=== PATIENT | female | born 1955 | race Caucasian/White ===

== ENCOUNTER 2022-03-14 20:16 | Emergency (ER) | payer BC, OTHER ==
--- OUTSIDE RECORDS SUMMARY | 2022-03-14 20:21 | XMS REPORT | Continuity of Care Document ---
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 lesion, inflammatory change, calcification, or sign of ductal obstruction.Thyroid: Within normal limits. Vascular structures: Bilateral carotid artery atherosclerotic calcifications.Paranasal sinuses: Clear. The mastoids are clear.Cranial posterior fossa: Within normal limits.Superficial tissues: Within normal limits.Regional skeleton: Multilevel significant cervical spine degenerative changes. C4-C5 3.7 mm grade 2 anterolisthesis is present with severe bilateral facet arthrosis and severe foraminal stenosis. C5-C6 and C6-C7 severe right foraminal stenosis is present. C7-T1 1.5 mm anterolisthesis is presentLung apices: Within normal limits.IMPRESSION: 1. Midline oral tongue mucosal cleft may be due to prior wedge resection. No residual or recurrent neoplasm identified. No adenopathy. 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 Axial, sagittal, coronal images are interpreted. This exam was performed according to our departmental dose-optimization protocol, which includes automated exposure control, adjustment of the mA and/or kV according to patient size and/or use of iterative reconstruction technique. Contrast : 98 mL Omnipaque 300 IV contrast was given.DLP- 323 mGy-cmCOMPARISON: No prior.FINDINGS:Aerodigestiv e tract: No mucosal thickening, abnormal enhancement, or asymmetry. The submucosal fat planes are maintained. Midline oral tongue mucosal surface cleft may be due to prior wedge resection. No evidence of residual or recurrent malignancy is identified. The lingual tonsils appear unremarkable.Lymph nodes: No lymphadenopathy.Salivary glands: No mass lesion, inflammatory change, calcification, or sign of ductal obstruction.Thyroid: Within normal limits. Vascular structures: Bilateral carotid artery atherosclerotic calcifications.Paranasal sinuses: Clear. The mastoids are clear.Cranial posterior fossa: Within normal limits.Superficial tissues: Within normal limits.Regional skeleton: Multilevel significant cervical spine degenerative changes. C4-C5 3.7 mm grade 2 anterolisthesis is present with severe bilateral facet arthrosis and severe foraminal stenosis. C5-C6 and C6-C7 severe right foraminal stenosis is present. C7-T1 1.5 mm anterolisthesis is presentLung apices: Within normal limits.IMPRESSION: 1. Midline oral tongue mucosal cleft may be due to prior wedge resection. No residual or recurrent neoplasm identified. No adenopathy. 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 Coronal and sagittal reformatted images are performed. This exam was performed according to our departmental dose-optimization program which includes automated exposure control, adjustment of the mA and/or kV according to patient size and/or use of iterative reconstruction technique. IV Contrast: 98 ml Omnipaque DLP: 298 mGy-cmCOMPARISON: 05/10/2017.FINDINGS:Lower Neck: The thyroid is unremarkable.Heart and Great Vessels: The heart size is within normal limits without pericardial effusion. The thoracic aorta is normal in size without aneurysmal dilatation. There is multifocal calcified and noncalcified atherosclerotic plaque involving the thoracic aorta.Lymph Nodes: There is a centrally-necrotic left supraclavicular lymph node, measuring 1.2 x 1.3 cm (series 2, image 4). There is no axillary, mediastinal, or hilar lymphadenopathy.Lungs and Pleura: There is a 3 mm indeterminate pulmonary nodule within the right upper lobe, not definitely visualized on the prior examination (series 3, image 22 and series 401B, image 66). Small focal area of branching opacities are redemonstrated along the posterior aspect of the superior segment of the left lower lobe (series 3, images 31 through 33 and series 401B, image 97). There are no additional suspicious pulmonary nodules identified. Calcified granuloma is noted within the left lower lobe. The lungs are otherwise clear. There are no pleural effusions or pneumothorax. There is a small fat-containing left-sided Bochdalek diaphragmatic hernia.Upper Abdomen: Unremarkable.Osseous Structures: No suspicious osteolytic or osteoblastic lesions. There is mild dextrocurvature of the thoracic spine and there are multilevel degenerative changes of the spine.IMPRESSION:1. Centrally-necrotic left supraclavicular lymph node, measuring 1.3 cm in diameter, suspicious for metastatic disease given the patient's history.2. Indeterminate small, 3 mm, pulmonary nodule within the right upper lobe. * Recommend close to this nodule and subsequent follow-up examinations.3. 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 Coronal and sagittal reformatted images are performed. This exam was performed according to our departmental dose-optimization program which includes automated exposure control, adjustment of the mA and/or kV according to patient size and/or use of iterative reconstruction technique. IV Contrast: 98 ml Omnipaque DLP: 298 mGy-cmCOMPARISON: 05/10/2017.FINDINGS:Lower Neck: The thyroid is unremarkable.Heart and Great Vessels: The heart size is within normal limits without pericardial effusion. The thoracic aorta is normal in size without aneurysmal dilatation. There is multifocal calcified and noncalcified atherosclerotic plaque involving the thoracic aorta.Lymph Nodes: There is a centrally-necrotic left supraclavicular lymph node, measuring 1.2 x 1.3 cm (series 2, image 4). There is no axillary, mediastinal, or hilar lymphadenopathy.Lungs and Pleura: There is a 3 mm indeterminate pulmonary nodule within the right upper lobe, not definitely visualized on the prior examination (series 3, image 22 and series 401B, image 66). Small focal area of branching opacities are redemonstrated along the posterior aspect of the superior segment of the left lower lobe (series 3, images 31 through 33 and series 401B, image 97). There are no additional suspicious pulmonary nodules identified. Calcified granuloma is noted within the left lower lobe. The lungs are otherwise clear. There are no pleural effusions or pneumothorax. There is a small fat-containing left-sided Bochdalek diaphragmatic hernia.Upper Abdomen: Unremarkable.Osseous Structures: No suspicious osteolytic or osteoblastic lesions. There is mild dextrocurvature of the thoracic spine and there are multilevel degenerative changes of the spine.IMPRESSION:1. Centrally-necrotic left supraclavicular lymph node, measuring 1.3 cm in diameter, suspicious for metastatic disease given the patient's history.2. Indeterminate small, 3 mm, pulmonary nodule within the right upper lobe. * Recommend close to this nodule and subsequent follow-up examinations.3. 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 [facility] EyeIC [id number] 08:25:00 Test Item Value Reference Range Interpretation Comments eGFR (test code = eGFR) 96 [facility] HospitalLifeSh[facility] Security [id number] 08:25:00 Test Item Value Reference Range Interpretation Comments Alk Phos (test code = Alk Phos) 80 39-136 [facility]Life[facility] [id number] 08:25:00 Test Item Value Reference Range Interpretation Comments Bili Total (test code = Bili Total) 0.5 0.2-1.3 [facility] HospitalLifeShield Security [id number] 08:25:00 Test Item Value Reference Range Interpretation Comments AST (test code = AST) 23 See_Comment [Auto mated message] The system which ge nerated this result transmit heena reference range : <=37. The reference range was not used to interpr et this result as mor l/abnormal. [facility] [id number] 08:25:00 Test Item Value Reference Range Interpretation Comments CO2 (test code = CO2) 27 24-32 [facility]2018-04-04 08:25:00 Test Item Value Reference Range Interpretation Comments Calcium Lvl (test code = Calcium Lvl) 8.8 8.5-10.5 [facility]2018-04-04 08:25:00 Test Item Value Reference Range Interpretation Comments Total Protein (test code = Total 8.1 6.4-8.4 Protein) [facility]2018-04-04 08:25:00 Test Item Value Reference Range Interpretation Comments Albumin Lvl (test code = Albumin Lvl) 3.0 3.5-5.0 [place] 185608-04-04 08:25:00 Test Item Value Reference Range Interpretation Comments ALT (test code = ALT) 26 See_Comment [Auto mated message] The system which ge nerated this result transmit heena reference range : <=65. The reference range was not used to interpr et this result as mor l/abnormal. [facility]2018-04-04 08:25:00 Test Item Value Reference Range Interpretation Comments BUN (test code = BUN) 6 7-22 [facility]2018-04-04 08:25:00 Test Item Value Reference Range Interpretation Comments Creatinine Lvl (test code = Creatinine 0.65 0.50-1.40 Lvl) [facility]2018-04-04 08:25:00 Test Item Value Reference Range Interpretation Comments Sodium Lvl (test code = Sodium Lvl) 140 135-145 [facility]2018-04-04 08:25:00 Test Item Value Reference Range Interpretation Comments Potassium Lvl (test code = Potassium 3.7 3.5-5.1 Lvl) [facility]2018-04-04 08:25:00 Test Item Value Reference Range Interpretation Comments Chloride Lvl (test code = Chloride Lvl) 105 95-109 [place] 185608-04-04 08:25:00 Test Item Value Reference Range Interpretation Comments Glucose Lvl (test code = Glucose Lvl) 99 70-99 [facility]2018-04-04 08:25:00 Test Item Value Reference Range Interpretation Comments A/G Ratio (test code = A/G Ratio) 0.6 1 0.7-1.6 [facility]2018-04-04 08:25:00 Test Item Value Reference Range Interpretation Comments Globulin (test code = Globulin) 5.1 2.7-4.2 [facility] [id number] 08:25:00 Test Item Value Reference Range Interpretation Comments B/C Ratio (test code = B/C Ratio) 9 1 6-25 [facility] [id number] 08:25:00 Test Item Value Reference Range Interpretation Comments AGAP (test code = AGAP) 11.7 10.0-20.0 [facility]PcxkrruYJYAHAZSEA4455-84-36 08:25:00 Test Item Value Reference Range Interpretation Comments MCV (test code = MCV) 89.0 80.0-98.0 [facility] CenterUgkhswvKZSZVJWIVK3511-84-13 08:25:00 Test Item Value Reference Range Interpretation Comments Hct (test code = Hct) 42.4 36.0-48.0 [facility] CenterOlpnqbgWTTHOJTOOW7694-70-11 08:25:00 Test Item Value Reference Range Interpretation Comments WBC (test code = WBC) 8.8 3.7-10.4 [facility] CenterHtwlypeMVPWKYQSFW7643-03-24 08:25:00 Test Item Value Reference Range Interpretation Comments Hgb (test code = Hgb) 13.9 12.0-16.0 [facility] CenterGpfgacxOEKTZLBVSG7317-25-90 08:25:00 Test Item Value Reference Range Interpretation Comments MPV (test code = MPV) 9.0 7.4-10.4 [facility] CenterZycirsgQQLHBVYCLD8904-74-67 08:25:00 Test Item Value Reference Range Interpretation Comments RBC (test code = RBC) 4.76 4.20-5.40 [facility] CenterRtttypnQUOQRJURUU6752-14-43 08:25:00 Test Item Value Reference Range Interpretation Comments Platelet (test code = Platelet) 296 133-450 [facility] CenterIlosendUMMRECTLYG8308-59-30 08:25:00 Test Item Value Reference Range Interpretation Comments RDW (test code = RDW) 12.5 11.5-14.5 [facility] CenterFpqgxujGJGXGZJYKC6947-95-11 08:25:00 Test Item Value Reference Range Interpretation Comments MCHC (test code = MCHC) 32.8 32.0-36.0 [facility] CenterQysqshtNFTTEYSVMC5224-91-02 08:25:00 Test Item Value Reference Range Interpretation Comments MCH (test code = MCH) 29.2 pg 27.0-31.0 [facility] CenterSdyraorNIDFWEGZKS3292-79-37 08:25:00 Test Item Value Reference Range Interpretation Comments Eosinophils # (test code 0.2 See_Comment [A utomated message] The = Eosinophils #) system whic h generated this result tra nsmitted reference range : <=0.5. The reference r samara was not used to int erpret this result as normal/abnormal . [facility] CenterKwdwcvkWRMKVPCAVP8104-23-43 08:25:00 Test Item Value Reference Range Interpretation Comments Monocytes # (test code 0.8 See_Comment [Aut omated message] The = Monocytes #) system which generated this result tra nsmitted reference range : <=0.8. The reference r samara was not used to int erpret this result as normal/abnormal . [facility] CenterIgskuqzXEUAQKPEZK9249-06-55 08:25:00 Test Item Value Reference Range Interpretation Comments Lymphocytes # (test code = Lymphocytes 2.2 1.0-5.5 #) [facility] CenterJfvapayVSQMIMFDUT4712-04-16 08:25:00 Test Item Value Reference Range Interpretation Comments Segs-Bands # (test code = Segs-Bands #) 5.6 1.5-8.1 [facility] CenterDkhhpavZDANEDEYMX9133-43-43 08:25:00 Test Item Value Reference Range Interpretation Comments Eosinophils (test code = 2.3 See_Comment [A utomated message] The Eosinophils) system which ge nerated this result tra nsmitted reference range : <=4.0. The reference r samara was not used to int erpret this result as normal/abnormal . [facility] CenterMppbezwPNHJTXUVZL5681-67-35 08:25:00 Test Item Value Reference Range Interpretation Comments Basophils (test code = 0.5 See_Comment [Aut omated message] The Basophils) system which ge nerated this result tra nsmitted reference range : <=1.0. The reference r samara was not used to int erpret this result as normal/abnormal . [facility] CenterXhisisvNHPNXSAHLE3748-69-56 08:25:00 Test Item Value Reference Range Interpretation Comments Lymphocytes (test code = Lymphocytes) 24.7 20.0-40.0 [facility] CenterRozixgcIGDLAGOXYY0058-58-24 08:25:00 Test Item Value Reference Range Interpretation Comments Segs (test code = Segs) 63.9 45.0-75.0 [facility] HospitalRkgkchxLIVHRHUSCK8552-69-12 08:25:00 Test Item Value Reference Range Interpretation Comments Monocytes (test code = Monocytes) 8.6 2.0-12.0 [facility]2018-04-04 08:25:00 Test Item Value Reference Range Interpretation Comments eGFR (test code = eGFR) 96 [facility]2018-04-04 08:25:00 Test Item Value Reference Range Interpretation Comments Alk Phos (test code = Alk Phos) 80 39-136 [facility]2018-04-04 08:25:00 Test Item Value Reference Range Interpretation Comments Bili Total (test code = Bili Total) 0.5 0.2-1.3 [facility]2018-04-04 08:25:00 Test Item Value Reference Range Interpretation Comments AST (test code = AST) 23 See_Comment [Auto mated message] The system which ge nerated this result transmit heena reference range : <=37. The reference range was not used to interpr et this result as mor l/abnormal. [facility]2018-04-04 08:25:00 Test Item Value Reference Range Interpretation Comments CO2 (test code = CO2) 27 24-32 [facility]2018-04-04 08:25:00 Test Item Value Reference Range Interpretation Comments Calcium Lvl (test code = Calcium Lvl) 8.8 8.5-10.5 [facility]2018-04-04 08:25:00 Test Item Value Reference Range Interpretation Comments Total Protein (test code = Total 8.1 6.4-8.4 Protein) [facility]2018-04-04 08:25:00 Test Item Value Reference Range Interpretation Comments Albumin Lvl (test code = Albumin Lvl) 3.0 3.5-5.0 [facility]2018-04-04 08:25:00 Test Item Value Reference Range Interpretation Comments ALT (test code = ALT) 26 See_Comment [Auto mated message] The system which ge nerated this result transmit heena reference range : <=65. The reference range was not used to interpr et this result as mor l/abnormal. [facility]2018-04-04 08:25:00 Test Item Value Reference Range Interpretation Comments BUN (test code = BUN) 6 7-22 [facility]2018-04-04 08:25:00 Test Item Value Reference Range Interpretation Comments Creatinine Lvl (test code = Creatinine 0.65 0.50-1.40 Lvl) [facility]2018-04-04 08:25:00 Test Item Value Reference Range Interpretation Comments Sodium Lvl (test code = Sodium Lvl) 140 135-145 [facility]2018-04-04 08:25:00 Test Item Value Reference Range Interpretation Comments Potassium Lvl (test code = Potassium 3.7 3.5-5.1 Lvl) [facility]2018-04-04 08:25:00 Test Item Value Reference Range Interpretation Comments Chloride Lvl (test code = Chloride Lvl) 105 95-109 [facility]2018-04-04 08:25:00 Test Item Value Reference Range Interpretation Comments Glucose Lvl (test code = Glucose Lvl) 99 70-99 [facility]2018-04-04 08:25:00 Test Item Value Reference Range Interpretation Comments A/G Ratio (test code = A/G Ratio) 0.6 1 0.7-1.6 [facility]2018-04-04 08:25:00 Test Item Value Reference Range Interpretation Comments Globulin (test code = Globulin) 5.1 2.7-4.2 [facility]2018-04-04 08:25:00 Test Item Value Reference Range Interpretation Comments B/C Ratio (test code = B/C Ratio) 9 1 6-25 [place] 185608-04-04 08:25:00 Test Item Value Reference Range Interpretation Comments AGAP (test code = AGAP) 11.7 10.0-20.0 [facility] CenterGlxiybkYIUNKZTCHD5185-81-78 08:25:00 Test Item Value Reference Range Interpretation Comments MCV (test code = MCV) 89.0 80.0-98.0 [facility] CenterNhsotezEKQJVRRVVL4553-10-72 08:25:00 Test Item Value Reference Range Interpretation Comments Hct (test code = Hct) 42.4 36.0-48.0 [place] 895518-04-04 08:25:00 Test Item Value Reference Range Interpretation Comments WBC (test code = WBC) 8.8 3.7-10.4 [facility] CenterKgkrrktIIQYHSHYAI3266-97-43 08:25:00 Test Item Value Reference Range Interpretation Comments Hgb (test code = Hgb) 13.9 12.0-16.0 [facility] CenterQzxdqlaILVTEKSISI1292-09-46 08:25:00 Test Item Value Reference Range Interpretation Comments MPV (test code = MPV) 9.0 7.4-10.4 [facility] CenterPstfqcdPZAMIRHIWR9279-46-69 08:25:00 Test Item Value Reference Range Interpretation Comments RBC (test code = RBC) 4.76 4.20-5.40 [facility] CenterXsunyimEYPYADJFCD8073-11-84 08:25:00 Test Item Value Reference Range Interpretation Comments Platelet (test code = Platelet) 296 133-450 [facility] CenterJbsjatbTLFMRDNXNM4171-04-72 08:25:00 Test Item Value Reference Range Interpretation Comments RDW (test code = RDW) 12.5 11.5-14.5 [facility] CenterDhfumyeDDZQTAVJVA7497-13-85 08:25:00 Test Item Value Reference Range Interpretation Comments MCHC (test code = MCHC) 32.8 32.0-36.0 [facility] CenterDebbzmgPMCCAXWWIA1555-48-99 08:25:00 Test Item Value Reference Range Interpretation Comments MCH (test code = MCH) 29.2 pg 27.0-31.0 [facility] CenterQpelbzlAYCBZPNZSH4912-44-99 08:25:00 Test Item Value Reference Range Interpretation Comments Eosinophils # (test code 0.2 See_Comment [A utomated message] The = Eosinophils #) system whic h generated this result tra nsmitted reference range : <=0.5. The reference r samara was not used to int erpret this result as normal/abnormal . [facility] CenterPewxwzbXLMDZXNCHX4404-44-74 08:25:00 Test Item Value Reference Range Interpretation Comments Monocytes # (test code 0.8 See_Comment [Aut omated message] The = Monocytes #) system which generated this result tra nsmitted reference range : <=0.8. The reference r samara was not used to int erpret this result as normal/abnormal . [facility] CenterZissmvqFBKTKGCYUV4002-31-58 08:25:00 Test Item Value Reference Range Interpretation Comments Lymphocytes # (test code = Lymphocytes 2.2 1.0-5.5 #) [facility] CenterWduyezaRWOGURLEYI5358-17-44 08:25:00 Test Item Value Reference Range Interpretation Comments Segs-Bands # (test code = Segs-Bands #) 5.6 1.5-8.1 [facility] CenterPeqbpuhLQAEPUFFJN1640-30-44 08:25:00 Test Item Value Reference Range Interpretation Comments Eosinophils (test code = 2.3 See_Comment [A utomated message] The Eosinophils) system which ge nerated this result tra nsmitted reference range : <=4.0. The reference r samara was not used to int erpret this result as normal/abnormal . [id number] 08:25:00 Test Item Value Reference Range Interpretation Comments Basophils (test code = 0.5 See_Comment [Aut omated message] The Basophils) system which ge nerated this result tra nsmitted reference range : <=1.0. The reference r samara was not used to int erpret this result as normal/abnormal . [facility] CenterXhudhilMLHWUVRPFT7047-92-36 08:25:00 Test Item Value Reference Range Interpretation Comments Lymphocytes (test code = Lymphocytes) 24.7 20.0-40.0 [facility] CenterUygegznFSXDVPHSUB8405-57-44 08:25:00 Test Item Value Reference Range Interpretation Comments Segs (test code = Segs) 63.9 45.0-75.0 [facility] CenterWqzlrxnOONJRNGIDI8445-29-24 08:25:00 Test Item Value Reference Range Interpretation Comments Monocytes (test code = Monocytes) 8.6 2.0-12.0 [facility] [id number] 01:14:00 Test Item Value Reference Range Interpretation Comments Ammonia (test code = Ammonia) 32.0 [facility] [id number] 01:14:00 Test Item Value Reference Range Interpretation Comments Ammonia (test code = Ammonia) 32.0 [place] [id number] 19:40:00 Test Item Value Reference Range Interpretation Comments Acetaminoph Lvl (test code = (05/10/17 2:40 PM) 10-20 Acetaminoph Lvl) [place] [id number] 19:40:00 Test Item Value Reference Range Interpretation Comments Salicylate Lvl (test no gt See_Comment [Autom ated message] The code = Salicylate Lvl) syste m which generated this result tra nsmitted reference range : <=30.0. The reference r samara was not used to int erpret this result as normal/abnormal . [facility]NjyxvszDOYTOPVNZJ4660-75-52 19:40:00 Test Item Value Reference Range Interpretation Comments Etoh (%) (test code = Etoh (%)) <0.003 % [facility] RnwxursWFJEFFGHUI4102-48-79 19:40:00 Test Item Value Reference Range Interpretation Comments Ethanol Lvl (test code = Ethanol <3.0 mg/dL Lvl) [facility] VbmleeiGIEWEVIDIF8316-62-05 19:40:00 Test Item Value Reference Range Interpretation Comments Acetaminoph Lvl (test code = (05/10/17 2:40 PM) 10-20 Acetaminoph Lvl) [facility] LszltkyFXOBGXHPBX3724-32-45 19:40:00 Test Item Value Reference Range Interpretation Comments Salicylate Lvl (test no gt See_Comment [Autom ated message] The code = Salicylate Lvl) syste m which generated this result tra nsmitted reference range : <=30.0. The reference r samara was not used to int erpret this result as normal/abnormal . [facility] GfvjeezJKYAQXVNXZ5471-08-12 19:40:00 Test Item Value Reference Range Interpretation Comments Etoh (%) (test code = Etoh (%)) <0.003 % [facility] ZwqxwvgASUKSDAZPK5502-03-71 19:40:00 Test Item Value Reference Range Interpretation Comments Ethanol Lvl (test code = Ethanol <3.0 mg/dL Lvl) [facility] [employer] AND [id number] 19:36:00 Test Item Value Reference Range Interpretation Comments UA Urobilinogen (test code = UA <=1.0 mg/dL 0.1-1.0 Urobilinogen) [facility] [employer] AND [id number] 19:36:00 Test Item Value Reference Range Interpretation Comments UA WBC (test code = no gt See_Comment [Automa heena message] The UA WBC) system which ge nerated this result transmit heena reference range : <=5. The reference range was not used to interpr et this result as mor l/abnormal. [facility] [employer] AND [id number] 19:36:00 Test Item Value Reference Range Interpretation Comments UA RBC (test code = no gt See_Comment [Automa heena message] The UA RBC) system which ge nerated this result transmit heena reference range : <=2. The reference range was not used to interpr et this result as mor l/abnormal. [facility] AND [id number] 19:36:00 Test Item Value Reference Range Interpretation Comments UA Turbidity (test code = Clear (05/10/17 2:36 UA Turbidity) PM) [facility] AND [id number] 19:36:00 Test Item Value Reference Range Interpretation Comments UA Color (test code = Light Yellow UA Color) *NA*(05/10/17 2:36 PM) [facility] AND [id number] 19:36:00 Test Item Value Reference Range Interpretation Comments UA Sq Epi (test code = UA Sq Epi) None Seen [facility] AND [id number] 19:36:00 Test Item Value Reference Range Interpretation Comments UA Mucus (test code = UA Mucus) Few /LPF [facility] AND [id number] 19:36:00 Test Item Value Reference Range Interpretation Comments UA Bili (test code = Negative *NA*(05/10/17 UA Bili) 2:36 PM) [facility] AND [id number] 19:36:00 Test Item Value Reference Range Interpretation Comments UA Ketones (test code = UA Negative mg/dL Ketones) [facility] AND [id number] 19:36:00 Test Item Value Reference Range Interpretation Comments UA Blood (test code = Negative (05/10/17 2:36 UA Blood) PM) [facility] AND [id number] 19:36:00 Test Item Value Reference Range Interpretation Comments UA Spec Grav (test code = UA Spec 1.018 1 Grav) [facility] AND [id number] 19:36:00 Test Item Value Reference Range Interpretation Comments UA pH (test code = UA pH) 7.5 1 5.0-8.0 [facility] AND [id number] 19:36:00 Test Item Value Reference Range Interpretation Comments UA Leuk Est (test Negative (05/10/17 2:36 code = UA Leuk Est) PM) [facility] AND [id number] 19:36:00 Test Item Value Reference Range Interpretation Comments UA Nitrite (test code Negative (05/10/17 2:36 = UA Nitrite) PM) [facility] AND [id number] 19:36:00 Test Item Value Reference Range Interpretation Comments UA Protein (test code = UA Negative mg/dL Protein) [facility] AND [id number] 19:36:00 Test Item Value Reference Range Interpretation Comments UA Glucose (test code = UA Negative mg/dL Glucose) [facility] AND [id number] 19:36:00 Test Item Value Reference Range Interpretation Comments UA Urobilinogen (test code = UA <=1.0 mg/dL 0.1-1.0 Urobilinogen) [facility] AND [id number] 19:36:00 Test Item Value Reference Range Interpretation Comments UA WBC (test code = no gt See_Comment [Automa heena message] The UA WBC) system which ge nerated this result transmit heena reference range : <=5. The reference range was not used to interpr et this result as mor l/abnormal. [facility] AND [id number] 19:36:00 Test Item Value Reference Range Interpretation Comments UA RBC (test code = no gt See_Comment [Automa heena message] The UA RBC) system which ge nerated this result transmit heena reference range : <=2. The reference range was not used to interpr et this result as mor l/abnormal. [facility] AND [id number] 19:36:00 Test Item Value Reference Range Interpretation Comments UA Turbidity (test code = Clear (05/10/17 2:36 UA Turbidity) PM) [facility] AND [id number] 19:36:00 Test Item Value Reference Range Interpretation Comments UA Color (test code = Light Yellow UA Color) *NA*(05/10/17 2:36 PM) [facility] AND [id number] 19:36:00 Test Item Value Reference Range Interpretation Comments UA Sq Epi (test code = UA Sq Epi) None Seen [facility] AND [id number] 19:36:00 Test Item Value Reference Range Interpretation Comments UA Mucus (test code = UA Mucus) Few /LPF [facility] AND [id number] 19:36:00 Test Item Value Reference Range Interpretation Comments UA Bili (test code = Negative *NA*(05/10/17 UA Bili) 2:36 PM) [facility] AND [id number] 19:36:00 Test Item Value Reference Range Interpretation Comments UA Ketones (test code = UA Negative mg/dL Ketones) [facility] AND [id number] 19:36:00 Test Item Value Reference Range Interpretation Comments UA Blood (test code = Negative (05/10/17 2:36 UA Blood) PM) [facility] AND [id number] 19:36:00 Test Item Value Reference Range Interpretation Comments UA Spec Grav (test code = UA Spec 1.018 1 Grav) [facility] AND [id number] 19:36:00 Test Item Value Reference Range Interpretation Comments UA pH (test code = UA pH) 7.5 1 5.0-8.0 [facility] AND [id number] 19:36:00 Test Item Value Reference Range Interpretation Comments UA Leuk Est (test Negative (05/10/17 2:36 code = UA Leuk Est) PM) [facility] AND [id number] 19:36:00 Test Item Value Reference Range Interpretation Comments UA Nitrite (test code Negative (05/10/17 2:36 = UA Nitrite) PM) [facility] AND [id number] 19:36:00 Test Item Value Reference Range Interpretation Comments UA Protein (test code = UA Negative mg/dL Protein) [facility] AND [id number] 19:36:00 Test Item Value Reference Range Interpretation Comments UA Glucose (test code = UA Negative mg/dL Glucose) [facility] [id number] 19:35:00 Test Item Value Reference Range Interpretation Comments U Cocaine Scr (test Negative *NA*(05/10/17 code = U Cocaine Scr) 2:35 PM) [facility] [id number] 19:35:00 Test Item Value Reference Range Interpretation Comments U Zoe Scr (test code Negative *NA*(05/10/17 = U Zoe Scr) 2:35 PM) [facility] [id number] 19:35:00 Test Item Value Reference Range Interpretation Comments U Benzodia Scr (test Negative *NA*(05/10/17 code = U Benzodia Scr) 2:35 PM) [facility] [id number] 19:35:00 Test Item Value Reference Range Interpretation Comments U Opiate Scr (test Negative *NA*(05/10/17 code = U Opiate Scr) 2:35 PM) [facility] [id number] 19:35:00 Test Item Value Reference Range Interpretation Comments U Amph Scr (test code Positive *ABN*(05/10/17 = U Amph Scr) 2:35 PM) [facility] [id number] 19:35:00 Test Item Value Reference Range Interpretation Comments U Cannab Scr (test Negative *NA*(05/10/17 code = U Cannab Scr) 2:35 PM) [facility] [id number] 19:35:00 Test Item Value Reference Range Interpretation Comments U Phencyc Scr (test Negative *NA*(05/10/17 code = U Phencyc Scr) 2:35 PM) [facility] [id number] 19:35:00 Test Item Value Reference Range Interpretation Comments UDS Note (test code = See Note (05/10/17 2:35 UDS Note) PM) [facility] [id number] 19:35:00 Test Item Value Reference Range Interpretation Comments U Cocaine Scr (test Negative *NA*(05/10/17 code = U Cocaine Scr) 2:35 PM) [facility] [id number] 19:35:00 Test Item Value Reference Range Interpretation Comments U Zoe Scr (test code Negative *NA*(05/10/17 = U Zoe Scr) 2:35 PM) [facility] [id number] 19:35:00 Test Item Value Reference Range Interpretation Comments U Benzodia Scr (test Negative *NA*(05/10/17 code = U Benzodia Scr) 2:35 PM) [facility] [id number] 19:35:00 Test Item Value Reference Range Interpretation Comments U Opiate Scr (test Negative *NA*(05/10/17 code = U Opiate Scr) 2:35 PM) [facility] [id number] 19:35:00 Test Item Value Reference Range Interpretation Comments U Amph Scr (test code Positive *ABN*(05/10/17 = U Amph Scr) 2:35 PM) [facility] [id number] 19:35:00 Test Item Value Reference Range Interpretation Comments U Cannab Scr (test Negative *NA*(05/10/17 code = U Cannab Scr) 2:35 PM) [facility] [id number] 19:35:00 Test Item Value Reference Range Interpretation Comments U Phencyc Scr (test Negative *NA*(05/10/17 code = U Phencyc Scr) 2:35 PM) [facility] [id number] 19:35:00 Test Item Value Reference Range Interpretation Comments UDS Note (test code = See Note (05/10/17 2:35 UDS Note) PM) [facility] [id number] 17:17:00 Test Item Value Reference Range Interpretation Comments [facility] HIV 4th GEN (test Negative *NA*(05/10/17 code = CDC HIV 4th 12:17 PM) GEN) [facility] H[id number] 17:17:00 Test Item Value Reference Range Interpretation Comments [facility] HIV 4th GEN (test Negative *NA*(05/10/17 code = CDC HIV 4th 12:17 PM) GEN) [facility] [id number] 17:12:00 Test Item Value Reference Range Interpretation Comments Lactic Acid Lvl (test code = Lactic 1.3 0.5-2.2 Acid Lvl) [facility] [id number] 17:12:00 Test Item Value Reference Range Interpretation Comments Lactic Acid Lvl (test code = Lactic 1.2 0.5-2.2 Acid Lvl) [facility] [id number] 17:12:00 Test Item Value Reference Range Interpretation Comments Lactic Acid Lvl (test code = Lactic 1.3 0.5-2.2 Acid Lvl) [facility] [id number] 17:12:00 Test Item Value Reference Range Interpretation Comments Lactic Acid Lvl (test code = Lactic 1.2 0.5-2.2 Acid Lvl) [facility] [id number] 13:30:00 Test Item Value Reference Range Interpretation Comments eGFR (test code = eGFR) 79 [facility]2018-04-03 13:30:00 Test Item Value Reference Range Interpretation Comments Potassium Lvl (test code = Potassium 3.3 3.5-5.1 Lvl) [facility]2018-04-03 13:30:00 Test Item Value Reference Range Interpretation Comments Chloride Lvl (test code = Chloride Lvl) 105 95-109 [facility]2018-04-03 13:30:00 Test Item Value Reference Range Interpretation Comments CO2 (test code = CO2) 25 24-32 [facility]2018-04-03 13:30:00 Test Item Value Reference Range Interpretation Comments Calcium Lvl (test code = Calcium Lvl) 8.5 8.5-10.5 [facility]2018-04-03 13:30:00 Test Item Value Reference Range Interpretation Comments Sodium Lvl (test code = Sodium Lvl) 138 135-145 [facility]2018-04-03 13:30:00 Test Item Value Reference Range Interpretation Comments Creatinine Lvl (test code = Creatinine 0.81 0.50-1.40 Lvl) [facility]2018-04-03 13:30:00 Test Item Value Reference Range Interpretation Comments Glucose Lvl (test code = Glucose Lvl) 123 70-99 [facility]2018-04-03 13:30:00 Test Item Value Reference Range Interpretation Comments BUN (test code = BUN) 9 7-22 [facility]2018-04-03 13:30:00 Test Item Value Reference Range Interpretation Comments AGAP (test code = AGAP) 11.3 10.0-20.0 [facility]2018-04-03 13:30:00 Test Item Value Reference Range Interpretation Comments Lactic Acid Lvl (test code = Lactic 2.3 0.5-2.2 Acid Lvl) [facility] [id number] 13:30:00 Test Item Value Reference Range Interpretation Comments K-time Rapid (test code = K-time 0.8 min 0.6-2.3 Rapid) [facility] CenterZbnanawUPKMUGNQTB7580-12-05 13:30:00 Test Item Value Reference Range Interpretation Comments Angle Rapid (test code = Angle 80 degrees 64-80 Rapid) [facility] C[id number] 13:30:00 Test Item Value Reference Range Interpretation Comments Split Point Rapid (test code = Split 0.6 min Point Rapid) [facility] CenterBujadqbYRKKUFYSMX4594-72-76 13:30:00 Test Item Value Reference Range Interpretation Comments R-time Rapid (test code = R-time 0.7 min 0.4-0.7 Rapid) [facility] CenterHyjagpjVMMZOFQRNW5648-14-23 13:30:00 Test Item Value Reference Range Interpretation Comments ACT (TEG) Rapid (test code = ACT (TEG) 113 s 86-118 Rapid) [facility] C[id number] 13:30:00 Test Item Value Reference Range Interpretation Comments Estimated % Lysis Rapid 3.4 See_Comment [Au tomated message] The (test code = Estimated syste m which generated % Lysis Rapid) this result t ransmitted reference range : <=7.5. The reference r samara was not used to int erpret this result as normal/abnormal . [facility] CenterCangyblWZJXVGRVXJ5057-73-57 13:30:00 Test Item Value Reference Range Interpretation Comments G-value Rapid (test code = G-value 12.7 5.0-11.6 Rapid) [facility] C[id number] 13:30:00 Test Item Value Reference Range Interpretation Comments Max Amplitude Rapid (test code = Max 72 mm 52-71 Amplitude Rapid) [facility] CenterLjkpjseNQMVKGXJBA4524-49-12 13:30:00 Test Item Value Reference Range Interpretation Comments Monocytes # (test code 0.7 See_Comment [Aut omated message] The = Monocytes #) system which generated this result tra nsmitted reference range : <=0.8. The reference r samara was not used to int erpret this result as normal/abnormal . [facility] CenterUbthjcoXPAUODHEQY4893-53-99 13:30:00 Test Item Value Reference Range Interpretation Comments Basophils (test code = 0.3 See_Comment [Aut omated message] The Basophils) system which ge nerated this result tra nsmitted reference range : <=1.0. The reference r samara was not used to int erpret this result as normal/abnormal . [facility] CenterPjpmchnOZMFEMNNLA5142-13-38 13:30:00 Test Item Value Reference Range Interpretation Comments Segs-Bands # (test code = Segs-Bands #) 7.7 1.5-8.1 [facility] CenterFisqkqwURBPZYSKBN0529-75-33 13:30:00 Test Item Value Reference Range Interpretation Comments Lymphocytes # (test code = Lymphocytes 1.4 1.0-5.5 #) [facility] CenterEttflmcWBPAQPZPFW3215-48-44 13:30:00 Test Item Value Reference Range Interpretation Comments Monocytes (test code = Monocytes) 6.9 2.0-12.0 [facility] CenterUrsitnjSHSAMAYKYR2356-17-77 13:30:00 Test Item Value Reference Range Interpretation Comments Lymphocytes (test code = Lymphocytes) 14.0 20.0-40.0 [facility] CenterSdlizdzSVHUIXIXQA2854-12-84 13:30:00 Test Item Value Reference Range Interpretation Comments Eosinophils (test code = 1.7 See_Comment [A utomated message] The Eosinophils) system which ge nerated this result tra nsmitted reference range : <=4.0. The reference r samara was not used to int erpret this result as normal/abnormal . [facility] CenterNgvqpctGCKAWPMOPE9218-94-56 13:30:00 Test Item Value Reference Range Interpretation Comments Segs (test code = Segs) 77.1 45.0-75.0 [facility] CenterVhkmkilLVABYVBXTY9796-79-19 13:30:00 Test Item Value Reference Range Interpretation Comments Eosinophils # (test code 0.2 See_Comment [A utomated message] The = Eosinophils #) system whic h generated this result tra nsmitted reference range : <=0.5. The reference r samara was not used to int erpret this result as normal/abnormal . [facility] CenterQeqwvufAAHPAYZQKZ4326-61-89 13:30:00 Test Item Value Reference Range Interpretation Comments MCH (test code = MCH) 29.2 pg 27.0-31.0 [facility] CenterCvirdorAJQMXQSSEJ6104-23-11 13:30:00 Test Item Value Reference Range Interpretation Comments MCHC (test code = MCHC) 33.1 32.0-36.0 [facility] CenterGbxghuiTDFKKLQKZY9318-69-93 13:30:00 Test Item Value Reference Range Interpretation Comments MCV (test code = MCV) 88.3 80.0-98.0 [facility] CenterDfgxoehWVHEVRIZCC1220-06-58 13:30:00 Test Item Value Reference Range Interpretation Comments MPV (test code = MPV) 9.0 7.4-10.4 [facility] CenterJwyvrauCJZXIRGBJP4662-82-28 13:30:00 Test Item Value Reference Range Interpretation Comments Platelet (test code = Platelet) 268 133-450 [facility] CenterTkubozqABBSGGWQVJ5669-89-76 13:30:00 Test Item Value Reference Range Interpretation Comments RDW (test code = RDW) 13.0 11.5-14.5 [facility] CenterLpumhpyMMRKITNNLM7938-35-95 13:30:00 Test Item Value Reference Range Interpretation Comments Hct (test code = Hct) 40.3 36.0-48.0 [facility] CenterHmvocreXYSRQGMAHO0922-01-34 13:30:00 Test Item Value Reference Range Interpretation Comments RBC (test code = RBC) 4.57 4.20-5.40 [facility] CenterZkwuthkMKWKJEKPTS6610-05-77 13:30:00 Test Item Value Reference Range Interpretation Comments Hgb (test code = Hgb) 13.3 12.0-16.0 [facility] CenterOpjrjtmCXNKAVMHTE0759-95-81 13:30:00 Test Item Value Reference Range Interpretation Comments WBC (test code = WBC) 10.0 3.7-10.4 [facility]2018-04-03 13:30:00 Test Item Value Reference Range Interpretation Comments eGFR (test code = eGFR) 79 [facility]2018-04-03 13:30:00 Test Item Value Reference Range Interpretation Comments Potassium Lvl (test code = Potassium 3.3 3.5-5.1 Lvl) [facility]2018-04-03 13:30:00 Test Item Value Reference Range Interpretation Comments Chloride Lvl (test code = Chloride Lvl) 105 95-109 [facility]2018-04-03 13:30:00 Test Item Value Reference Range Interpretation Comments CO2 (test code = CO2) 25 24-32 [facility]2018-04-03 13:30:00 Test Item Value Reference Range Interpretation Comments Calcium Lvl (test code = Calcium Lvl) 8.5 8.5-10.5 [facility]2018-04-03 13:30:00 Test Item Value Reference Range Interpretation Comments Sodium Lvl (test code = Sodium Lvl) 138 135-145 [facility]2018-04-03 13:30:00 Test Item Value Reference Range Interpretation Comments Creatinine Lvl (test code = Creatinine 0.81 0.50-1.40 Lvl) [facility]2018-04-03 13:30:00 Test Item Value Reference Range Interpretation Comments Glucose Lvl (test code = Glucose Lvl) 123 70-99 [facility]2018-04-03 13:30:00 Test Item Value Reference Range Interpretation Comments BUN (test code = BUN) 9 7-22 [place] 185608-04-03 13:30:00 Test Item Value Reference Range Interpretation Comments AGAP (test code = AGAP) 11.3 10.0-20.0 [facility]2018-04-03 13:30:00 Test Item Value Reference Range Interpretation Comments Lactic Acid Lvl (test code = Lactic 2.3 0.5-2.2 Acid Lvl) [place] 895518-04-03 13:30:00 Test Item Value Reference Range Interpretation Comments K-time Rapid (test code = K-time 0.8 min 0.6-2.3 Rapid) [facility] CenterOatprqzYIFNRQTXDO3278-51-99 13:30:00 Test Item Value Reference Range Interpretation Comments Angle Rapid (test code = Angle 80 degrees 64-80 Rapid) [place] [address]-04-03 13:30:00 Test Item Value Reference Range Interpretation Comments Split Point Rapid (test code = Split 0.6 min Point Rapid) [facility] CenterFxcrbysJFRJKZSXJK8435-37-68 13:30:00 Test Item Value Reference Range Interpretation Comments R-time Rapid (test code = R-time 0.7 min 0.4-0.7 Rapid) [place] [address]-04-03 13:30:00 Test Item Value Reference Range Interpretation Comments ACT (TEG) Rapid (test code = ACT (TEG) 113 s 86-118 Rapid) [place] 895518-04-03 13:30:00 Test Item Value Reference Range Interpretation Comments Estimated % Lysis Rapid 3.4 See_Comment [Au tomated message] The (test code = Estimated syste m which generated % Lysis Rapid) this result t ransmitted reference range : <=7.5. The reference r samara was not used to int erpret this result as normal/abnormal . [facility] CenterFjhldbcUXOPFECAWB7746-36-17 13:30:00 Test Item Value Reference Range Interpretation Comments G-value Rapid (test code = G-value 12.7 5.0-11.6 Rapid) [facility]GsflvsrULIRBXZKLJ8848-97-19 13:30:00 Test Item Value Reference Range Interpretation Comments Max Amplitude Rapid (test code = Max 72 mm 52-71 Amplitude Rapid) [facility] CenterTqtarwtAKHCGROVJT1187-72-17 13:30:00 Test Item Value Reference Range Interpretation Comments Monocytes # (test code 0.7 See_Comment [Aut omated message] The = Monocytes #) system which generated this result tra nsmitted reference range : <=0.8. The reference r samara was not used to int erpret this result as normal/abnormal . [facility] CenterEdbhyhuIHMMLXULHV2743-78-99 13:30:00 Test Item Value Reference Range Interpretation Comments Basophils (test code = 0.3 See_Comment [Aut omated message] The Basophils) system which ge nerated this result tra nsmitted reference range : <=1.0. The reference r samara was not used to int erpret this result as normal/abnormal . [facility] CenterIazhowuSLMMINVJHL0184-10-58 13:30:00 Test Item Value Reference Range Interpretation Comments Segs-Bands # (test code = Segs-Bands #) 7.7 1.5-8.1 [facility] CenterIyotqpfVRSTHBTZVO7553-08-88 13:30:00 Test Item Value Reference Range Interpretation Comments Lymphocytes # (test code = Lymphocytes 1.4 1.0-5.5 #) [facility] CenterKyctchzNZJEXUIJFN9594-61-86 13:30:00 Test Item Value Reference Range Interpretation Comments Monocytes (test code = Monocytes) 6.9 2.0-12.0 [facility] CenterBjbrxvlOFNLJZIJRM3088-35-28 13:30:00 Test Item Value Reference Range Interpretation Comments Lymphocytes (test code = Lymphocytes) 14.0 20.0-40.0 [place] [address]-04-03 13:30:00 Test Item Value Reference Range Interpretation Comments Eosinophils (test code = 1.7 See_Comment [A utomated message] The Eosinophils) system which ge nerated this result tra nsmitted reference range : <=4.0. The reference r samara was not used to int erpret this result as normal/abnormal . [facility] CenterGzbpauzVWWRSQNNWU2981-82-83 13:30:00 Test Item Value Reference Range Interpretation Comments Segs (test code = Segs) 77.1 45.0-75.0 [facility] CenterRbnutlhJHJREWNIYS0975-24-85 13:30:00 Test Item Value Reference Range Interpretation Comments Eosinophils # (test code 0.2 See_Comment [A utomated message] The = Eosinophils #) system whic h generated this result tra nsmitted reference range : <=0.5. The reference r samara was not used to int erpret this result as normal/abnormal . [facility] CenterLoskgzrQFHDZFRESX3589-90-56 13:30:00 Test Item Value Reference Range Interpretation Comments MCH (test code = MCH) 29.2 pg 27.0-31.0 [facility] CenterRjnrcepRQUAKJMOGO1894-48-29 13:30:00 Test Item Value Reference Range Interpretation Comments MCHC (test code = MCHC) 33.1 32.0-36.0 [facility] CenterQoqgjwyMFYBVUYTCL4093-90-72 13:30:00 Test Item Value Reference Range Interpretation Comments MCV (test code = MCV) 88.3 80.0-98.0 [facility] CenterBsrkjjnSBDPSWQCNJ0735-65-03 13:30:00 Test Item Value Reference Range Interpretation Comments MPV (test code = MPV) 9.0 7.4-10.4 [facility] CenterPucxijsLIVAQKDQDR5191-07-31 13:30:00 Test Item Value Reference Range Interpretation Comments Platelet (test code = Platelet) 268 133-450 [facility] CenterIqapmkwUCAVLRNPME4676-06-64 13:30:00 Test Item Value Reference Range Interpretation Comments RDW (test code = RDW) 13.0 11.5-14.5 [facility] CenterIzsuzurMLXVZMSXTC4744-75-42 13:30:00 Test Item Value Reference Range Interpretation Comments Hct (test code = Hct) 40.3 36.0-48.0 [facility] CenterRdtpwiqGDMQSLEBEH1931-40-26 13:30:00 Test Item Value Reference Range Interpretation Comments RBC (test code = RBC) 4.57 4.20-5.40 [facility] CenterFlrpkkzBPZLRHECTL5303-08-22 13:30:00 Test Item Value Reference Range Interpretation Comments Hgb (test code = Hgb) 13.3 12.0-16.0 [facility] CenterSzuklstTBBURDXBHT0715-44-55 13:30:00 Test Item Value Reference Range Interpretation Comments WBC (test code = WBC) 10.0 3.7-10.4 [facility]
--- NOTE | 2022-03-14 22:42 | ER ---
Nurse's Notes [facility] Name: Iveth Lara Age: 66 yrs Sex: Female : 1955 Arrival Date: 03/14/2022 Time: 20:20 Bed IW1 Private MD: Diagnosis: Presentation: 03/14 20:48 Chief complaint: Patient states: I want to get a referral to a local oncologist. I am kr3 taking 8 200mg at a time every few hours to keep my swelling down on tongue. I also have a place on my tongue that has been diagnosed as cancer. Coronavirus screen: Vaccine status: Patient reports being unvaccinated. Ebola Screen: Patient denies travel to an Ebola-affected area in the 21 days before illness onset. Initial Sepsis Screen: Does the patient meet any 2 criteria? No. Patient's initial sepsis screen is negative. Does the patient have a suspected source of infection? No. Patient's initial sepsis screen is negative. Risk Assessment: Do you want to hurt yourself or someone else? Patient reports no desire to harm self or others. Onset of symptoms was February 11, 2022. 20:48 Method Of Arrival: Ambulatory kr3 20:48 Acuity: RIAN 3 kr3 Triage Assessment: 20:58 General: Appears in no apparent distress. uncomfortable, slender, unkempt, Behavior is kr3 calm, flat. Pain:. Historical: - Allergies: 20:56 No Known Allergies; kr3 - PMHx: 20:56 tongue cancer; kr3 - Immunization history:: Adult Immunizations not up to date. - Social history:: Smoking status: Patient reports the use of cigarette tobacco products, smokes one pack cigarettes per day. Vital Signs: 20:48 BP 145 / 78; Pulse 89; Resp 18; Temp 99.7(TE); Pulse Ox 96% on R/A; Weight 44 kg; kr3 Height 5 ft. 4 in. (162.56 cm); Pain 9/10; 20:48 Body Mass Index 16.65 (44.00 kg, 162.56 cm) kr3 ED Course: 20:20 Patient arrived in ED. am2 20:39 Erick Garza PA is PHCP. cp 20:39 Erick Pratt MD is Attending Physician. cp 20:56 Triage completed. kr3 20:59 Arm band placed on left wrist. kr3 Administered Medications: No medications were administered Outcome: 22:41 Patient left the ED. bb Signatures: Jodie Valentino RN RN bb Erick Garza PA PA cp Moreno, Amanda [facility] Anusha Houston RN RN kr3 Corrections: (The following items were deleted from the chart) 20:58 20:56 PMHx: Diabetes mellitus; kr3 kr3
[2022-03-14 23:02] VITALS: BP 145/78; O2SAT 96
== END 2022-03-14 22:41 | disposition left against medical advice (07) ==
LOC: ER 20:16
DX: Z02.9 Encounter for administrative examinations, unspecified (principal)
CPT/HCPCS: 99281

== ENCOUNTER 2022-03-19 06:32 | Day surgery (SDC) | payer OTHER, BC ==
[2022-03-18 16:16] LABS: Potassium 3.4 mmol/L (3.5-5.1)
[2022-03-19] MEDS ORDERED: CEFAZOLIN SODIUM 1 GM/VIAL ONE (06:41)
[2022-03-19] MEDS ORDERED: Ringers Lactate 1,000 ML IV ONE (06:41)
[2022-03-19 07:22] VITALS: BP 131/57; TEMP 99.4; O2SAT 95
[2022-03-19] MEDS ORDERED: LIDOCAINE 1% MPF 5 ML VIAL ONE (07:46)
[2022-03-19] MEDS ORDERED: EPHEDRINE SULF 50 MG/ML VIAL ONE (07:46)
[2022-03-19] MEDS ORDERED: Phenylephrine HCl 10 MG/ML 1 ML VIAL ONE (07:47)
[2022-03-19] MEDS ORDERED: NS 0.9% VIAL 0 ML ONE (07:47)
[2022-03-19] MEDS ORDERED: propofoL 200 MG/20 ML VIAL IV ONE (07:47)
[2022-03-19] MEDS ORDERED: ETOMIDATE 20 MG/10 ML VIAL IV ONE (07:51)
[2022-03-19] MEDS ORDERED: FENTANYL CITR 100 MCG/2 ML ONE (08:24)
--- NOTE | 2022-03-23 17:33 | EKG ---
Test Date: 2022-03-18 Test Time: 15:05:43 Teacher Music: GHISLAINE MEASUREMENT RESULTS: Intervals: Rate: 80 NV: 134 QRSD: 80 QT: 338 QTc: 389 Fulda: P: 60 NV: 134 QRS: -29 T: 50 INTERPRETIVE STATEMENTS: Normal sinus rhythm Septal infarct, age undetermined Abnormal ECG No previous ECG available for comparison Electronically Signed On 03-23-22 17:19:44 BARKER PEELER by Jose Pruitt
== END 2022-03-19 08:40 | disposition left against medical advice (07) ==
LOC: OR 06:32
PROVIDERS: ATTEND Surgery
PROC: 0DH68UZ Insertion of Feeding Device into Stomach, Via Natural or Artificial Opening Endoscopic (ICD-10-PCS; principal; 2022-03-19 08:00)
DX: C02.9 Malignant neoplasm of tongue, unspecified (principal); E46 Unspecified protein-calorie malnutrition; K29.70 Gastritis, unspecified, without bleeding; Z53.09 Procedure and treatment not carried out because of other contraindication
CPT/HCPCS: 43246; 93005; 80048; 36415; J2704; J2001; J3010; J7120; J0690; A4216; J2370

== ENCOUNTER 2022-03-24 15:11 | Inpatient (IN) | payer OTHER, BC ==
--- OUTSIDE RECORDS SUMMARY | 2022-03-24 15:16 | XMS REPORT | Continuity of Care Document ---
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 Value Reference Range Interpretation Comments Total Protein (test code = Total 8.1 6.4-8.4 Protein) [facility]2018-04-04 08:25:00 Test Item Value Reference Range Interpretation Comments Albumin Lvl (test code = Albumin Lvl) 3.0 3.5-5.0 [facility]2018-04-04 08:25:00 Test Item Value Reference Range Interpretation Comments ALT (test code = ALT) 26 See_Comment [Auto mated message] The system which ge nerated this result transmit heena reference range : <=65. The reference range was not used to interpr et this result as mor l/abnormal. [facility]2018-04-04 08:25:00 Test Item Value Reference Range Interpretation Comments BUN (test code = BUN) 6 7-22 [facility]2018-04-04 08:25:00 Test Item Value Reference Range Interpretation Comments Creatinine Lvl (test code = Creatinine 0.65 0.50-1.40 Lvl) [facility]2018-04-04 08:25:00 Test Item Value Reference Range Interpretation Comments Sodium Lvl (test code = Sodium Lvl) 140 135-145 [facility]2018-04-04 08:25:00 Test Item Value Reference Range Interpretation Comments Potassium Lvl (test code = Potassium 3.7 3.5-5.1 Lvl) [facility]2018-04-04 08:25:00 Test Item Value Reference Range Interpretation Comments Chloride Lvl (test code = Chloride Lvl) 105 95-109 [facility]2018-04-04 08:25:00 Test Item Value Reference Range Interpretation Comments Glucose Lvl (test code = Glucose Lvl) 99 70-99 [facility]2018-04-04 08:25:00 Test Item Value Reference Range Interpretation Comments A/G Ratio (test code = A/G Ratio) 0.6 1 0.7-1.6 [facility]2018-04-04 08:25:00 Test Item Value Reference Range Interpretation Comments Globulin (test code = Globulin) 5.1 2.7-4.2 [facility]2018-04-04 08:25:00 Test Item Value Reference Range Interpretation Comments B/C Ratio (test code = B/C Ratio) 9 1 6-25 [place]288-04-04 08:25:00 Test Item Value Reference Range Interpretation Comments AGAP (test code = AGAP) 11.7 10.0-20.0 [facility] PasoPuozzbsWOGHYFJAVC8619-32-35 08:25:00 Test Item Value Reference Range Interpretation Comments MCV (test code = MCV) 89.0 80.0-98.0 [facility] PasoQbdjcirWLOZKYXAYQ1806-55-98 08:25:00 Test Item Value Reference Range Interpretation Comments Hct (test code = Hct) 42.4 36.0-48.0 [facility] PasoQrppzidDZGBNFPIAM2646-60-78 08:25:00 Test Item Value Reference Range Interpretation Comments WBC (test code = WBC) 8.8 3.7-10.4 [facility] PasoRwqsohpJHDAMWSEAU0175-02-51 08:25:00 Test Item Value Reference Range Interpretation Comments Hgb (test code = Hgb) 13.9 12.0-16.0 [facility] PasoYmwxekfXGDXROHEHS5668-54-67 08:25:00 Test Item Value Reference Range Interpretation Comments MPV (test code = MPV) 9.0 7.4-10.4 [facility] PasoDugywtiTTMCCALLBS2230-37-74 08:25:00 Test Item Value Reference Range Interpretation Comments RBC (test code = RBC) 4.76 4.20-5.40 [facility] PasoZdfpqocFCMAEXWNFZ7682-91-72 08:25:00 Test Item Value Reference Range Interpretation Comments Platelet (test code = Platelet) 296 133-450 [facility] PasoYnxchqwXHIOMTIZNE2955-32-76 08:25:00 Test Item Value Reference Range Interpretation Comments RDW (test code = RDW) 12.5 11.5-14.5 [facility] PasoGfwewdhKISBNQUUOR7754-06-11 08:25:00 Test Item Value Reference Range Interpretation Comments MCHC (test code = MCHC) 32.8 32.0-36.0 [facility] PasoAgwivkkMFQXBADDUT0824-51-35 08:25:00 Test Item Value Reference Range Interpretation Comments MCH (test code = MCH) 29.2 pg 27.0-31.0 [facility] PasoLtmseqyRIVKKDNMSF6388-16-52 08:25:00 Test Item Value Reference Range Interpretation Comments Eosinophils # (test code 0.2 See_Comment [A utomated message] The = Eosinophils #) system whic h generated this result tra nsmitted reference range : <=0.5. The reference r samara was not used to int erpret this result as normal/abnormal . [facility] PasoLgrxglnVCGECJNNGR5002-01-16 08:25:00 Test Item Value Reference Range Interpretation Comments Monocytes # (test code 0.8 See_Comment [Aut omated message] The = Monocytes #) system which generated this result tra nsmitted reference range : <=0.8. The reference r samara was not used to int erpret this result as normal/abnormal . [facility] PasoFnvkzctHFKTZWVSDM6170-09-69 08:25:00 Test Item Value Reference Range Interpretation Comments Lymphocytes # (test code = Lymphocytes 2.2 1.0-5.5 #) [facility] PasoMzhbyarJAJCHSTRYA0055-01-27 08:25:00 Test Item Value Reference Range Interpretation Comments Segs-Bands # (test code = Segs-Bands #) 5.6 1.5-8.1 [facility] PasoIvsazlhRENXJMDOXU6780-96-75 08:25:00 Test Item Value Reference Range Interpretation Comments Eosinophils (test code = 2.3 See_Comment [A utomated message] The Eosinophils) system which ge nerated this result tra nsmitted reference range : <=4.0. The reference r samara was not used to int erpret this result as normal/abnormal . [facility] PasoZbexkjgNPAJJVXTES0449-12-64 08:25:00 Test Item Value Reference Range Interpretation Comments Basophils (test code = 0.5 See_Comment [Aut omated message] The Basophils) system which ge nerated this result tra nsmitted reference range : <=1.0. The reference r samara was not used to int erpret this result as normal/abnormal . [facility] PasoDireiazCKYJQICEZT2828-33-32 08:25:00 Test Item Value Reference Range Interpretation Comments Lymphocytes (test code = Lymphocytes) 24.7 20.0-40.0 [facility] PasoIvhxchyXETIKNIADP6728-79-01 08:25:00 Test Item Value Reference Range Interpretation Comments Segs (test code = Segs) 63.9 45.0-75.0 [facility] PasoFajghnnJLNMDLOFZX4248-46-14 08:25:00 Test Item Value Reference Range Interpretation Comments Monocytes (test code = Monocytes) 8.6 2.0-12.0 [facility] [id number] 01:14:00 Test Item Value Reference Range Interpretation Comments Ammonia (test code = Ammonia) 32.0 [facility]annCOL[facility] SYSTEMKFAZS6323-18-39 01:14:00 Test Item Value Reference Range Interpretation Comments Ammonia (test code = Ammonia) 32.0 [facility] HospitalEgeooehRTYWILBKHH0654-62-17 19:40:00 Test Item Value Reference Range Interpretation Comments Acetaminoph Lvl (test code = (05/10/17 2:40 PM) 10-20 Acetaminoph Lvl) [facility] HospitalJkkzhzyAYBSGOTFTP4748-90-59 19:40:00 Test Item Value Reference Range Interpretation Comments Salicylate Lvl (test no gt See_Comment [Autom ated message] The code = Salicylate Lvl) syste m which generated this result tra nsmitted reference range : <=30.0. The reference r samara was not used to int erpret this result as normal/abnormal . [facility] LakeLtnntatXNDRJMYZIY4673-92-89 19:40:00 Test Item Value Reference Range Interpretation Comments Etoh (%) (test code = Etoh (%)) <0.003 % [facility] LakeMbyzqepHIFIGZLGSH9293-99-46 19:40:00 Test Item Value Reference Range Interpretation Comments Ethanol Lvl (test code = Ethanol <3.0 mg/dL Lvl) [facility]DfkiimoXDDEMJWXAZ6925-92-21 19:40:00 Test Item Value Reference Range Interpretation Comments Acetaminoph Lvl (test code = (05/10/17 2:40 PM) 10-20 Acetaminoph Lvl) [facility] LakeSkcdbkdPIBGVOAGXG6526-08-04 19:40:00 Test Item Value Reference Range Interpretation Comments Salicylate Lvl (test no gt See_Comment [Autom ated message] The code = Salicylate Lvl) syste m which generated this result tra nsmitted reference range : <=30.0. The reference r samara was not used to int erpret this result as normal/abnormal . [facility] HospitalZpohrxwAFUTOJJZRS1197-36-80 19:40:00 Test Item Value Reference Range Interpretation Comments Etoh (%) (test code = Etoh (%)) <0.003 % [facility] LakeQldmmgiCMAULYJFUI7805-33-24 19:40:00 Test Item Value Reference Range Interpretation Comments Ethanol Lvl (test code = Ethanol <3.0 mg/dL Lvl) [facility]2018-04-03 19:36:00 Test Item Value Reference Range Interpretation Comments UA Urobilinogen (test code = UA <=1.0 mg/dL 0.1-1.0 Urobilinogen) [facility] AND [id number] 19:36:00 Test Item Value Reference Range Interpretation Comments UA WBC (test code = no gt See_Comment [Automa heena message] The UA WBC) system which ge nerated this result transmit heena reference range : <=5. The reference range was not used to interpr et this result as mor l/abnormal. [facility] AND [id number] 19:36:00 Test Item Value Reference Range Interpretation Comments UA RBC (test code = no gt See_Comment [Automa heena message] The UA RBC) system which ge nerated this result transmit heena reference range : <=2. The reference range was not used to interpr et this result as mor l/abnormal. [facility] AND [id number] 19:36:00 Test Item Value Reference Range Interpretation Comments UA Turbidity (test code = Clear (05/10/17 2:36 UA Turbidity) PM) [facility] AND [id number] 19:36:00 Test Item Value Reference Range Interpretation Comments UA Color (test code = Light Yellow UA Color) *NA*(05/10/17 2:36 PM) [facility] AND [id number] 19:36:00 Test Item Value Reference Range Interpretation Comments UA Sq Epi (test code = UA Sq Epi) None Seen [facility] AND [id number] 19:36:00 Test Item Value Reference Range Interpretation Comments UA Mucus (test code = UA Mucus) Few /LPF [facility] AND [id number] 19:36:00 Test Item Value Reference Range Interpretation Comments UA Bili (test code = Negative *NA*(05/10/17 UA Bili) 2:36 PM) [facility] AND [id number] 19:36:00 Test Item Value Reference Range Interpretation Comments UA Ketones (test code = UA Negative mg/dL Ketones) [facility] AND [id number] 19:36:00 Test Item Value Reference Range Interpretation Comments UA Blood (test code = Negative (05/10/17 2:36 UA Blood) PM) [facility] AND [id number] 19:36:00 Test Item Value Reference Range Interpretation Comments UA Spec Grav (test code = UA Spec 1.018 1 Grav) [facility] AND [id number] 19:36:00 Test Item Value Reference Range Interpretation Comments UA pH (test code = UA pH) 7.5 1 5.0-8.0 [facility] AND [id number] 19:36:00 Test Item Value Reference Range Interpretation Comments UA Leuk Est (test Negative (05/10/17 2:36 code = UA Leuk Est) PM) [facility] AND [id number] 19:36:00 Test Item Value Reference Range Interpretation Comments UA Nitrite (test code Negative (05/10/17 2:36 = UA Nitrite) PM) [facility] AND [id number] 19:36:00 Test Item Value Reference Range Interpretation Comments UA Protein (test code = UA Negative mg/dL Protein) [facility] AND [id number] 19:36:00 Test Item Value Reference Range Interpretation Comments UA Glucose (test code = UA Negative mg/dL Glucose) [facility] AND [id number] 19:36:00 Test Item Value Reference Range Interpretation Comments UA Urobilinogen (test code = UA <=1.0 mg/dL 0.1-1.0 Urobilinogen) [facility] AND [id number] 19:36:00 Test Item Value Reference Range Interpretation Comments UA WBC (test code = no gt See_Comment [Automa heena message] The UA WBC) system which ge nerated this result transmit heena reference range : <=5. The reference range was not used to interpr et this result as mor l/abnormal. [facility] AND [id number] 19:36:00 Test Item Value Reference Range Interpretation Comments UA RBC (test code = no gt See_Comment [Automa heena message] The UA RBC) system which ge nerated this result transmit heena reference range : <=2. The reference range was not used to interpr et this result as mor l/abnormal. [facility] AND [id number] 19:36:00 Test Item Value Reference Range Interpretation Comments UA Turbidity (test code = Clear (05/10/17 2:36 UA Turbidity) PM) [facility] AND [id number] 19:36:00 Test Item Value Reference Range Interpretation Comments UA Color (test code = Light Yellow UA Color) *NA*(05/10/17 2:36 PM) [facility] AND [id number] 19:36:00 Test Item Value Reference Range Interpretation Comments UA Sq Epi (test code = UA Sq Epi) None Seen [facility] AND [id number] 19:36:00 Test Item Value Reference Range Interpretation Comments UA Mucus (test code = UA Mucus) Few /LPF [facility] AND [id number] 19:36:00 Test Item Value Reference Range Interpretation Comments UA Bili (test code = Negative *NA*(05/10/17 UA Bili) 2:36 PM) [facility] AND [id number] 19:36:00 Test Item Value Reference Range Interpretation Comments UA Ketones (test code = UA Negative mg/dL Ketones) [facility] AND [id number] 19:36:00 Test Item Value Reference Range Interpretation Comments UA Blood (test code = Negative (05/10/17 2:36 UA Blood) PM) [facility] AND [id number] 19:36:00 Test Item Value Reference Range Interpretation Comments UA Spec Grav (test code = UA Spec 1.018 1 Grav) [facility] AND [id number] 19:36:00 Test Item Value Reference Range Interpretation Comments UA pH (test code = UA pH) 7.5 1 5.0-8.0 [facility] AND [id number] 19:36:00 Test Item Value Reference Range Interpretation Comments UA Leuk Est (test Negative (05/10/17 2:36 code = UA Leuk Est) PM) [facility] AND [id number] 19:36:00 Test Item Value Reference Range Interpretation Comments UA Nitrite (test code Negative (05/10/17 2:36 = UA Nitrite) PM) [facility] AND [id number] 19:36:00 Test Item Value Reference Range Interpretation Comments UA Protein (test code = UA Negative mg/dL Protein) [facility] AND [id number] 19:36:00 Test Item Value Reference Range Interpretation Comments UA Glucose (test code = UA Negative mg/dL Glucose) [facility]ann[facility] [id number] 19:35:00 Test Item Value Reference Range Interpretation Comments U Cocaine Scr (test Negative *NA*(05/10/17 code = U Cocaine Scr) 2:35 PM) [facility] [id number] 19:35:00 Test Item Value Reference Range Interpretation Comments U Zoe Scr (test code Negative *NA*(05/10/17 = U Zoe Scr) 2:35 PM) [facility] [id number] 19:35:00 Test Item Value Reference Range Interpretation Comments U Benzodia Scr (test Negative *NA*(05/10/17 code = U Benzodia Scr) 2:35 PM) [facility] [id number] 19:35:00 Test Item Value Reference Range Interpretation Comments U Opiate Scr (test Negative *NA*(05/10/17 code = U Opiate Scr) 2:35 PM) [facility] [id number] 19:35:00 Test Item Value Reference Range Interpretation Comments U Amph Scr (test code Positive *ABN*(05/10/17 = U Amph Scr) 2:35 PM) [facility] [id number] 19:35:00 Test Item Value Reference Range Interpretation Comments U Cannab Scr (test Negative *NA*(05/10/17 code = U Cannab Scr) 2:35 PM) [facility] [id number] 19:35:00 Test Item Value Reference Range Interpretation Comments U Phencyc Scr (test Negative *NA*(05/10/17 code = U Phencyc Scr) 2:35 PM) [facility] [id number] 19:35:00 Test Item Value Reference Range Interpretation Comments UDS Note (test code = See Note (05/10/17 2:35 UDS Note) PM) [facility] [id number] 19:35:00 Test Item Value Reference Range Interpretation Comments U Cocaine Scr (test Negative *NA*(05/10/17 code = U Cocaine Scr) 2:35 PM) [facility] [id number] 19:35:00 Test Item Value Reference Range Interpretation Comments U Zoe Scr (test code Negative *NA*(05/10/17 = U Zoe Scr) 2:35 PM) [facility] [id number] 19:35:00 Test Item Value Reference Range Interpretation Comments U Benzodia Scr (test Negative *NA*(05/10/17 code = U Benzodia Scr) 2:35 PM) [facility] [id number] 19:35:00 Test Item Value Reference Range Interpretation Comments U Opiate Scr (test Negative *NA*(05/10/17 code = U Opiate Scr) 2:35 PM) [facility] [id number] 19:35:00 Test Item Value Reference Range Interpretation Comments U Amph Scr (test code Positive *ABN*(05/10/17 = U Amph Scr) 2:35 PM) [facility] [id number] 19:35:00 Test Item Value Reference Range Interpretation Comments U Cannab Scr (test Negative *NA*(05/10/17 code = U Cannab Scr) 2:35 PM) [facility] [id number] 19:35:00 Test Item Value Reference Range Interpretation Comments U Phencyc Scr (test Negative *NA*(05/10/17 code = U Phencyc Scr) 2:35 PM) [facility] [id number] 19:35:00 Test Item Value Reference Range Interpretation Comments UDS Note (test code = See Note (05/10/17 2:35 UDS Note) PM) [facility] [id number] 17:17:00 Test Item Value Reference Range Interpretation Comments [facility] HIV 4th GEN (test Negative *NA*(05/10/17 code = CDC HIV 4th 12:17 PM) GEN) [facility] [id number] 17:17:00 Test Item Value Reference Range Interpretation Comments CDC HIV 4th GEN (test Negative *NA*(05/10/17 code = CDC HIV 4th 12:17 PM) GEN) [facility]annCHE[facility] [id number] 17:12:00 Test Item Value Reference Range Interpretation Comments Lactic Acid Lvl (test code = Lactic 1.3 0.5-2.2 Acid Lvl) [facility]ann[facility] [id number] 17:12:00 Test Item Value Reference Range Interpretation Comments Lactic Acid Lvl (test code = Lactic 1.2 0.5-2.2 Acid Lvl) [facility]2018-04-03 17:12:00 Test Item Value Reference Range Interpretation Comments Lactic Acid Lvl (test code = Lactic 1.3 0.5-2.2 Acid Lvl) [facility]2018-04-03 17:12:00 Test Item Value Reference Range Interpretation Comments Lactic Acid Lvl (test code = Lactic 1.2 0.5-2.2 Acid Lvl) [facility]2018-04-03 13:30:00 Test Item Value Reference Range Interpretation Comments eGFR (test code = eGFR) 79 [facility]2018-04-03 13:30:00 Test Item Value Reference Range Interpretation Comments Potassium Lvl (test code = Potassium 3.3 3.5-5.1 Lvl) [facility]2018-04-03 13:30:00 Test Item Value Reference Range Interpretation Comments Chloride Lvl (test code = Chloride Lvl) 105 95-109 [facility]2018-04-03 13:30:00 Test Item Value Reference Range Interpretation Comments CO2 (test code = CO2) 25 24-32 [facility]2018-04-03 13:30:00 Test Item Value Reference Range Interpretation Comments Calcium Lvl (test code = Calcium Lvl) 8.5 8.5-10.5 [facility]2018-04-03 13:30:00 Test Item Value Reference Range Interpretation Comments Sodium Lvl (test code = Sodium Lvl) 138 135-145 [facility]2018-04-03 13:30:00 Test Item Value Reference Range Interpretation Comments Creatinine Lvl (test code = Creatinine 0.81 0.50-1.40 Lvl) [facility]2018-04-03 13:30:00 Test Item Value Reference Range Interpretation Comments Glucose Lvl (test code = Glucose Lvl) 123 70-99 [facility]2018-04-03 13:30:00 Test Item Value Reference Range Interpretation Comments BUN (test code = BUN) 9 7-22 [facility]2018-04-03 13:30:00 Test Item Value Reference Range Interpretation Comments AGAP (test code = AGAP) 11.3 10.0-20.0 [facility]2018-04-03 13:30:00 Test Item Value Reference Range Interpretation Comments Lactic Acid Lvl (test code = Lactic 2.3 0.5-2.2 Acid Lvl) [facility] [id number] 13:30:00 Test Item Value Reference Range Interpretation Comments K-time Rapid (test code = K-time 0.8 min 0.6-2.3 Rapid) [facility] [id number] 13:30:00 Test Item Value Reference Range Interpretation Comments Angle Rapid (test code = Angle 80 degrees 64-80 Rapid) [facility] [id number] 13:30:00 Test Item Value Reference Range Interpretation Comments Split Point Rapid (test code = Split 0.6 min Point Rapid) [facility]KjlvrtcNFTPGKGJEN7190-36-07 13:30:00 Test Item Value Reference Range Interpretation Comments R-time Rapid (test code = R-time 0.7 min 0.4-0.7 Rapid) [facility]K[id number] 13:30:00 Test Item Value Reference Range Interpretation Comments ACT (TEG) Rapid (test code = ACT (TEG) 113 s 86-118 Rapid) [facility] PasoZcqluitOQBANPMXWX3565-46-17 13:30:00 Test Item Value Reference Range Interpretation Comments Estimated % Lysis Rapid 3.4 See_Comment [Au tomated message] The (test code = Estimated syste m which generated % Lysis Rapid) this result t ransmitted reference range : <=7.5. The reference r samara was not used to int erpret this result as normal/abnormal . [facility] PasoMgvkcuiGSMKERRTYI2515-26-60 13:30:00 Test Item Value Reference Range Interpretation Comments G-value Rapid (test code = G-value 12.7 5.0-11.6 Rapid) [facility] PasoLmiknwjNKDFSHNPJA8276-59-77 13:30:00 Test Item Value Reference Range Interpretation Comments Max Amplitude Rapid (test code = Max 72 mm 52-71 Amplitude Rapid) [facility] PasoVvfsexqESFTQJHFOY2849-04-02 13:30:00 Test Item Value Reference Range Interpretation Comments Monocytes # (test code 0.7 See_Comment [Aut omated message] The = Monocytes #) system which generated this result tra nsmitted reference range : <=0.8. The reference r samara was not used to int erpret this result as normal/abnormal . [facility] PasoAqwrgixZPPNXRLFBP3024-76-50 13:30:00 Test Item Value Reference Range Interpretation Comments Basophils (test code = 0.3 See_Comment [Aut omated message] The Basophils) system which ge nerated this result tra nsmitted reference range : <=1.0. The reference r samara was not used to int erpret this result as normal/abnormal . [facility] PasoTrnjvkjZZDDURZDAQ5094-89-11 13:30:00 Test Item Value Reference Range Interpretation Comments Segs-Bands # (test code = Segs-Bands #) 7.7 1.5-8.1 [facility] PasoYnceirqYWBQROTLUX6102-79-15 13:30:00 Test Item Value Reference Range Interpretation Comments Lymphocytes # (test code = Lymphocytes 1.4 1.0-5.5 #) [facility] PasoDrwpnilGTUSDIQCYB8821-51-94 13:30:00 Test Item Value Reference Range Interpretation Comments Monocytes (test code = Monocytes) 6.9 2.0-12.0 [facility] PasoSwzrktyOXURLLMHNK0471-23-83 13:30:00 Test Item Value Reference Range Interpretation Comments Lymphocytes (test code = Lymphocytes) 14.0 20.0-40.0 [facility] PasoOgcwdsyOANFLKYFRQ0512-76-75 13:30:00 Test Item Value Reference Range Interpretation Comments Eosinophils (test code = 1.7 See_Comment [A utomated message] The Eosinophils) system which ge nerated this result tra nsmitted reference range : <=4.0. The reference r samara was not used to int erpret this result as normal/abnormal . [facility] PasoBlqsjbsNUMTDJEDGP8325-42-06 13:30:00 Test Item Value Reference Range Interpretation Comments Segs (test code = Segs) 77.1 45.0-75.0 [facility] PasoDrxljlePADLFJRJBG6809-88-45 13:30:00 Test Item Value Reference Range Interpretation Comments Eosinophils # (test code 0.2 See_Comment [A utomated message] The = Eosinophils #) system whic h generated this result tra nsmitted reference range : <=0.5. The reference r samara was not used to int erpret this result as normal/abnormal . [facility] PasoGrzvykuMOHESHEZNI1587-30-04 13:30:00 Test Item Value Reference Range Interpretation Comments MCH (test code = MCH) 29.2 pg 27.0-31.0 [facility] PasoUqjdzadANMMYOSOQH0907-48-60 13:30:00 Test Item Value Reference Range Interpretation Comments MCHC (test code = MCHC) 33.1 32.0-36.0 [facility] PasoMfrnycyHZFFRBCKRS2154-17-69 13:30:00 Test Item Value Reference Range Interpretation Comments MCV (test code = MCV) 88.3 80.0-98.0 [facility] PasoRsbvbuvPXLELMFVMU2583-46-58 13:30:00 Test Item Value Reference Range Interpretation Comments MPV (test code = MPV) 9.0 7.4-10.4 [facility] PasoTnzsueqIDQOHKNQEH1772-35-01 13:30:00 Test Item Value Reference Range Interpretation Comments Platelet (test code = Platelet) 268 133-450 [facility] PasoOzkotogAYZDGQSLDC0972-87-50 13:30:00 Test Item Value Reference Range Interpretation Comments RDW (test code = RDW) 13.0 11.5-14.5 [facility] PasoWlbcwwlRYMFSOUMSV8180-63-12 13:30:00 Test Item Value Reference Range Interpretation Comments Hct (test code = Hct) 40.3 36.0-48.0 [facility] PasoKicrnzwHMFRDBJHAP6900-05-71 13:30:00 Test Item Value Reference Range Interpretation Comments RBC (test code = RBC) 4.57 4.20-5.40 [facility] PasoRyokymsLWXLIZZGKG8467-68-29 13:30:00 Test Item Value Reference Range Interpretation Comments Hgb (test code = Hgb) 13.3 12.0-16.0 [facility] PasoCojzzljNMIMFDOJTC9747-54-64 13:30:00 Test Item Value Reference Range Interpretation Comments WBC (test code = WBC) 10.0 3.7-10.4 [facility]2018-04-03 13:30:00 Test Item Value Reference Range Interpretation Comments eGFR (test code = eGFR) 79 [facility]2018-04-03 13:30:00 Test Item Value Reference Range Interpretation Comments Potassium Lvl (test code = Potassium 3.3 3.5-5.1 Lvl) [facility]2018-04-03 13:30:00 Test Item Value Reference Range Interpretation Comments Chloride Lvl (test code = Chloride Lvl) 105 95-109 [facility]2018-04-03 13:30:00 Test Item Value Reference Range Interpretation Comments CO2 (test code = CO2) 25 24-32 [facility]2018-04-03 13:30:00 Test Item Value Reference Range Interpretation Comments Calcium Lvl (test code = Calcium Lvl) 8.5 8.5-10.5 [facility]2018-04-03 13:30:00 Test Item Value Reference Range Interpretation Comments Sodium Lvl (test code = Sodium Lvl) 138 135-145 [facility]2018-04-03 13:30:00 Test Item Value Reference Range Interpretation Comments Creatinine Lvl (test code = Creatinine 0.81 0.50-1.40 Lvl) [facility]2018-04-03 13:30:00 Test Item Value Reference Range Interpretation Comments Glucose Lvl (test code = Glucose Lvl) 123 70-99 [facility]2018-04-03 13:30:00 Test Item Value Reference Range Interpretation Comments BUN (test code = BUN) 9 7-22 [id number] 13:30:00 Test Item Value Reference Range Interpretation Comments AGAP (test code = AGAP) 11.3 10.0-20.0 [facility]2018-04-03 13:30:00 Test Item Value Reference Range Interpretation Comments Lactic Acid Lvl (test code = Lactic 2.3 0.5-2.2 Acid Lvl) [facility] Pa[id number] 13:30:00 Test Item Value Reference Range Interpretation Comments K-time Rapid (test code = K-time 0.8 min 0.6-2.3 Rapid) [facility] Pa[id number] 13:30:00 Test Item Value Reference Range Interpretation Comments Angle Rapid (test code = Angle 80 degrees 64-80 Rapid) [facility] PasoBowvedxPYUCIDUXZV4187-11-71 13:30:00 Test Item Value Reference Range Interpretation Comments Split Point Rapid (test code = Split 0.6 min Point Rapid) [facility] PasoCrsyshyJSRHOQDEFA2499-34-26 13:30:00 Test Item Value Reference Range Interpretation Comments R-time Rapid (test code = R-time 0.7 min 0.4-0.7 Rapid) [facility] PasoMtggosuMCVIZOIZAC2141-92-42 13:30:00 Test Item Value Reference Range Interpretation Comments ACT (TEG) Rapid (test code = ACT (TEG) 113 s 86-118 Rapid) [facility] PasoUtebuovFFDGCPLZYA9154-04-45 13:30:00 Test Item Value Reference Range Interpretation Comments Estimated % Lysis Rapid 3.4 See_Comment [Au tomated message] The (test code = Estimated syste m which generated % Lysis Rapid) this result t ransmitted reference range : <=7.5. The reference r samara was not used to int erpret this result as normal/abnormal . [facility] Pa[id number] 13:30:00 Test Item Value Reference Range Interpretation Comments G-value Rapid (test code = G-value 12.7 5.0-11.6 Rapid) [facility] PasoEaokbsmUZNIIAVYDA4009-95-19 13:30:00 Test Item Value Reference Range Interpretation Comments Max Amplitude Rapid (test code = Max 72 mm 52-71 Amplitude Rapid) [facility] PasoVbvbjlxQEPMTUCQET1015-08-57 13:30:00 Test Item Value Reference Range Interpretation Comments Monocytes # (test code 0.7 See_Comment [Aut omated message] The = Monocytes #) system which generated this result tra nsmitted reference range : <=0.8. The reference r samara was not used to int erpret this result as normal/abnormal . [facility] PasoEaafolrUALQJUACYE5831-07-13 13:30:00 Test Item Value Reference Range Interpretation Comments Basophils (test code = 0.3 See_Comment [Aut omated message] The Basophils) system which ge nerated this result tra nsmitted reference range : <=1.0. The reference r samara was not used to int erpret this result as normal/abnormal . [facility] PasoDrqcwgfDGOKZNXHEB1186-71-50 13:30:00 Test Item Value Reference Range Interpretation Comments Segs-Bands # (test code = Segs-Bands #) 7.7 1.5-8.1 [facility] PasoJqhckbgOVMEDYHSVM0248-50-22 13:30:00 Test Item Value Reference Range Interpretation Comments Lymphocytes # (test code = Lymphocytes 1.4 1.0-5.5 #) [facility] PasoFbhufctDKZLWVZGEY4163-38-38 13:30:00 Test Item Value Reference Range Interpretation Comments Monocytes (test code = Monocytes) 6.9 2.0-12.0 [facility] PasoVvmmlvbEOBYEOITIP1751-43-42 13:30:00 Test Item Value Reference Range Interpretation Comments Lymphocytes (test code = Lymphocytes) 14.0 20.0-40.0 [facility] PasoQhuabhzKNQCQFNKDU1501-47-14 13:30:00 Test Item Value Reference Range Interpretation Comments Eosinophils (test code = 1.7 See_Comment [A utomated message] The Eosinophils) system which ge nerated this result tra nsmitted reference range : <=4.0. The reference r samara was not used to int erpret this result as normal/abnormal . [facility] PasoThfxnqfHUAXNVAGSP7387-03-22 13:30:00 Test Item Value Reference Range Interpretation Comments Segs (test code = Segs) 77.1 45.0-75.0 [facility] PasoOgooslsIYATBMIVDU2137-67-82 13:30:00 Test Item Value Reference Range Interpretation Comments Eosinophils # (test code 0.2 See_Comment [A utomated message] The = Eosinophils #) system whic h generated this result tra nsmitted reference range : <=0.5. The reference r samara was not used to int erpret this result as normal/abnormal . [facility] PasoTgxqfmwKREOMZTIXH3542-44-49 13:30:00 Test Item Value Reference Range Interpretation Comments MCH (test code = MCH) 29.2 pg 27.0-31.0 [facility] PasoAcqgbpuTJUKHRRUZS4898-32-69 13:30:00 Test Item Value Reference Range Interpretation Comments MCHC (test code = MCHC) 33.1 32.0-36.0 [facility] PasoSozbhctPQZWDQZUPZ8683-95-64 13:30:00 Test Item Value Reference Range Interpretation Comments MCV (test code = MCV) 88.3 80.0-98.0 [facility] PasoWiukcplCAIGMNBADD4809-08-29 13:30:00 Test Item Value Reference Range Interpretation Comments MPV (test code = MPV) 9.0 7.4-10.4 [facility] PasoClvppdaSLYDCUTEOH5308-58-14 13:30:00 Test Item Value Reference Range Interpretation Comments Platelet (test code = Platelet) 268 133-450 [facility] PasoZlitehlRULNXNNUNJ4537-65-54 13:30:00 Test Item Value Reference Range Interpretation Comments RDW (test code = RDW) 13.0 11.5-14.5 [facility] PasoJfslyzqVOYYLDZOPF6419-02-06 13:30:00 Test Item Value Reference Range Interpretation Comments Hct (test code = Hct) 40.3 36.0-48.0 [facility] PasoHmybykhFTFNWUOFUP8769-56-78 13:30:00 Test Item Value Reference Range Interpretation Comments RBC (test code = RBC) 4.57 4.20-5.40 [facility] PasoFmsritvVREQOGWZZW8587-91-79 13:30:00 Test Item Value Reference Range Interpretation Comments Hgb (test code = Hgb) 13.3 12.0-16.0 [facility] PasoNkqojruMWFLDSSOAO3269-53-13 13:30:00 Test Item Value Reference Range Interpretation Comments WBC (test code = WBC) 10.0 3.7-10.4 [facility]
[2022-03-24] MEDS ORDERED: KETOROLAC 30 MG/ML INJ ONE (15:48)
[2022-03-24] MEDS ORDERED: ONDANSETRON 4 MG/2 ML VIAL ONE (15:48)
[2022-03-24] MEDS ORDERED: NA CHLORIDE 0.9% 500 ML ONE (15:49)
--- NOTE | 2022-03-24 16:07 | RAD REPORT ---
EXAM DESCRIPTION: RAD - Chest Single View - 03/24/2022 4:01 pm CLINICAL HISTORY: ABDOMINAL DISTENTION COMPARISON: No comparisons FINDINGS: Lines: None. Lungs: Ill-defined opacities are present within the lungs bilaterally. Pleural: No significant pleural effusions or pneumothorax. Cardiac: The heart size is within normal limits. Mediastinum: Within normal limits. Bones: No acute fractures. Other: None IMPRESSION: Ill-defined bilateral airspace disease could reflect multifocal pneumonia.
[2022-03-24 16:10] LABS: Absolute Lymphocytes (CBC) 1.1 K/uL (0.7-4.9); Hematocrit 21.5 % (36.0-45.0); Lymphocytes % 4.3 % (15.3-44.8); MCV 115.9 fL (80-100); MPV 8.2 fL (7.6-11.3); RBC Red Blood Cell Count 1.85 M/uL (3.86-4.86)
[2022-03-24 16:23] LABS: Potassium 3.2 mmol/L (3.5-5.1)
[2022-03-24] MEDS ORDERED: PIPERACIL/TAZO 3.375 GM VIAL IV ONE (17:05)
[2022-03-24] MEDS ORDERED: VANCOMYCIN 1 GM/VIAL ONE (17:05)
[2022-03-24] MEDS ORDERED: NA CHLORIDE 0.9% 250 ML ONE (17:06)
[2022-03-24] MEDS ORDERED: NA CHLORIDE 0.9% 100 ML ONE (17:06)
[2022-03-24 17:39] LABS: Protime INR 1.15
[2022-03-24 17:39] LABS: Platelet Estimate ADEQ; Platelets, Giant PRESENT; Toxic Granulation 1+
[2022-03-24 17:40] LABS: Blood Morphology Comment NOTED (NOT SEEN); Macrocytosis 3+
[2022-03-24 17:47] LABS: Albumin 2.4 g/dL (3.4-5.0); Bilirubin Direct 0.2 mg/dL (0-0.2); Bilirubin Total 0.3 mg/dL (0.2-1.0); Protein, Total 6.2 g/dL (6.4-8.2)
--- NOTE | 2022-03-24 18:15 | ER ---
Nurse's Notes [facility] Name: Iveth Lara Age: 66 yrs Sex: Female : 1955 Arrival Date: 03/24/2022 Time: 15:13 Bed 3 Private MD: Diagnosis: Anemia, unspecified;Adult failure to thrive;Other pneumonia, unspecified organism Presentation: 03/24 15:19 Chief complaint: Patient states: she had 30 teeth pulled today and is supposed to get a ap3 feeding tube now, her provider sent her here. patient states she has tongue cancer as for the reason for the teeth being pulled. Coronavirus screen: At this time, the client does not indicate any symptoms associated with coronavirus-19. Ebola Screen: No symptoms or risks identified at this time. Initial Sepsis Screen: Does the patient meet any 2 criteria? HR > 90 bpm. Does the patient have a suspected source of infection? No. Patient's initial sepsis screen is negative. Risk Assessment: Do you want to hurt yourself or someone else? Patient reports no desire to harm self or others. Onset of symptoms was March 24, 2022. 15:19 Method Of Arrival: Ambulatory ap3 15:24 Acuity: RIAN 2 ap3 Triage Assessment: 15:22 General: Appears uncomfortable, Behavior is anxious, crying, restless. Pain: Complains ap3 of pain in mouth Pain currently is 10 out of 10 on a pain scale. EENT: Reports pain Pain is 10 out of 10 on a pain scale. Neuro: Level of Consciousness is awake, alert, obeys commands, Oriented to person, place, time, situation. Cardiovascular: Patient's skin is warm and dry. Respiratory: Airway is patent. Historical: - Allergies: 15:22 No Known Allergies; ap3 - PMHx: 15:22 Tongue Cancer; ap3 - Immunization history:: Client reports having NOT received the Covid vaccine. - Social history:: Smoking status: Patient reports the use of cigarette tobacco products, smokes one-half pack cigarettes per day. Screenin:23 Abuse screen: Denies threats or abuse. Nutritional screening: No deficits noted. ap3 Tuberculosis screening: No symptoms or risk factors identified. Assessment: 16:03 General: Appears distressed, uncomfortable, Behavior is cooperative, appropriate for sg5 age, agitated. Pain: Complains of pain in mouth Pain at worst was 10 out of 10 on a pain scale. Is continuous. Neuro: No deficits noted. Level of Consciousness is awake, alert, obeys commands, Oriented to person, place, time, situation, Appropriate for age. Cardiovascular: No deficits noted. Denies chest pain, Capillary refill < 3 seconds Rhythm is sinus tachycardia. Respiratory: Airway Patient has tongue cancer, cancer obstructs mouth from eating solid foods. Breath sounds are clear bilaterally. GI: No deficits noted. No signs and/or symptoms were reported involving the gastrointestinal system. Abdomen is flat, non-distended. : No deficits noted. No signs and/or symptoms were reported regarding the genitourinary system. EENT: Tongue cancer noted in mouth. Derm: No deficits noted. No signs and/or symptoms reported regarding the dermatologic system. Musculoskeletal: No deficits noted. No signs and/or symptoms reported regarding the musculoskeletal system. 17:27 Reassessment: Patient appears in no apparent distress at this time. No changes from ld1 previously documented assessment. Patient and/or family updated on plan of care and expected duration. Pain level reassessed. Pt baseline chronic pain to mouth. . 17:45 Reassessment: Patient placed on 2L NC for O2 sats declining during deep sleep. sg5 Vital Signs: 15:19 BP 135 / 66; Pulse 110; Temp 98.8; Pulse Ox 98% ; Weight 44.45 kg; ap3 15:19 Resp 19; ap3 15:19 Weight 44.45 kg; ap3 16:08 BP 164 / 89; Pulse 112; Resp 18; Temp 97.9; Pulse Ox 96% on R/A; Pain 10/10; sg5 17:27 BP 142 / 76; Pulse 96; Resp 22; Pulse Ox 94% on R/A; ld1 17:44 Pulse Ox 99% on 2 lpm NC; sg5 20:30 BP 132 / 66; Pulse 96; Resp 18; Pulse Ox 93% on 2 lpm NC; jb4 ED Course: 15:13 Patient arrived in ED. mr 15:13 Erick Garza PA is PHCP. cp 15:13 Allan Isaac MD is Attending Physician. cp 15:24 Arm band placed on left wrist. ap3 15:31 Triage completed. ap3 15:40 Mckayla Becker, RN is Primary Nurse. ld1 16:06 Type And Screen Sent. ld1 16:06 BMP Sent. ld1 16:06 CBC with Diff Sent. ld1 16:07 Inserted saline lock: 20 gauge in left antecubital area, using aseptic technique. Blood ld1 collected. 17:00 Missed attempt(s): 22 gauge in left antecubital area. Bleeding controlled, band aid ph applied, catheter tip intact. 17:05 Inserted saline lock: 22 gauge in right wrist, using aseptic technique. ph 18:14 Dangelo Stanley MD is Hospitalizing Provider. bs3 18:40 SARS RAPID Sent. ld1 20:46 No apparent distress. escorted to restroom gait steady. kl Administered Medications: 15:57 Drug: Ondansetron 4 mg Route: IVP; Site: left antecubital; sg5 17:26 Follow up: Response: No adverse reaction ld1 16:03 Drug: Ketorolac 15 mg Route: IVP; Site: left antecubital; sg5 17:26 Follow up: Response: No adverse reaction ld1 16:03 Drug: NS 0.9% 500 ml Route: IV; Rate: 1 bolus; Site: left antecubital; sg5 17:26 Follow up: Response: No adverse reaction ld1 17:24 Drug: vancoMYCIN 1 grams Route: IVPB; Infused Over: 2 hrs; Site: right forearm; sg5 18:58 Follow up: Response: No adverse reaction; IV Status: Completed infusion ld1 18:59 Drug: Zosyn (piperacillin-tazobactam) 3.375 grams Route: IVPB; Infused Over: 60 mins; ld1 Site: right forearm; 19:28 Drug: Dilaudid (HYDROmorphone) 0.5 mg Route: IVP; Site: left antecubital; jb4 Outcome: 18:14 Decision to Hospitalize by Provider. bs3 21:43 Patient left the ED. Signatures: Rosie Arnold RN Nena Braswell Nurys Hernandez RN RN Erick Whitten PA PA cp Bryson, James, RN RN jb4 Amira Polanco RN RN ap3 Mckayla Becker RN RN ld1 Allan Isaac MD MD bs3 Aparna Rosas RN RN sg5
--- NOTE | 2022-03-24 18:15 | EDPHYS ---
Physician Documentation [facility] Name: Iveth Lara Age: 66 yrs Sex: Female : 1955 Arrival Date: 03/24/2022 Time: 15:13 Bed 3 Private MD: ED Physician Allan Isaac HPI: 03/24 15:27 This 66 yrs old Female presents to ER via Ambulatory with complaints of Mouth bs3 Problem, Feeding tube problem. 15:27 66-year-old female history of tongue cancer had an attempt at a PEG placement however bs3 had difficulty with procedural sedation presents for PEG placement. Historical: - Allergies: 15:22 No Known Allergies; ap3 - PMHx: 15:22 Tongue Cancer; ap3 - Immunization history:: Client reports having NOT received the Covid vaccine. - Social history:: Smoking status: Patient reports the use of cigarette tobacco products, smokes one-half pack cigarettes per day. ROS: 15:27 Constitutional: Negative for fever, chills bs3 15:27 All other systems are negative. Exam: 15:27 Constitutional: pt appears frail, appears older than standard age. Head/Face: bs3 Normocephalic, atraumatic. Eyes: Pupils equal round and reactive to light, extra-ocular motions intact. Lids and lashes normal. ENT: mmm, no posterior phyarngeal erythema, multiple teeth removed Chest/axilla: Normal chest wall appearance and motion. Nontender with no deformity. No lesions are appreciated. Cardiovascular: tachycardic no murmur Respiratory: Lungs have equal breath sounds bilaterally, clear to auscultation, no respiratory distress Abdomen/GI: Soft, non-tender, no rebound or guarding 16:02 Normal sinus rhythm at [address] elevations or depressions QTc 406 as interpreted by bs3 myself 18:05 Abdomen/GI: Rectal exam: no melena, no gross blood. bs3 Vital Signs: 15:19 BP 135 / 66; Pulse 110; Temp 98.8; Pulse Ox 98% ; Weight 44.45 kg; ap3 15:19 Resp 19; ap3 15:19 Weight 44.45 kg; ap3 16:08 BP 164 / 89; Pulse 112; Resp 18; Temp 97.9; Pulse Ox 96% on R/A; Pain 10/10; sg5 17:27 BP 142 / 76; Pulse 96; Resp 22; Pulse Ox 94% on R/A; ld1 17:44 Pulse Ox 99% on 2 lpm NC; sg5 20:30 BP 132 / 66; Pulse 96; Resp 18; Pulse Ox 93% on 2 lpm NC; jb4 MDM: 15:26 Patient medically screened. bs3 15:27 Differential diagnosis: will eval for anemia, elecetroloyte abn, will make npo, I bs3 discussed with general surgery (rashida)who rec admission to hospitalist. 16:02 Management of patient was discussed with the following: Roll Trucker: Surgery who bs3 recommends admission Dr. Rubi. Independent interpretation of the following test(s) in the Emergency Department EKG: See my EKG interpretation above. Historians other than the Patient: Surgery provided details. Care significantly affected by the following Social Determinants of Health: Poor access to healthcare and/or lack of insurance, Poor access to transportation. 16:02 ED course: Discussed with hospitalist who accepts admission. bs3 16:38 ED course: unclear etiology of leukocytosis, xr concerning for multifocal pna. . bs3 17:54 ED course: Discussed with Dr. rubi said no prior lab, rec no ct given no abd pain. . bs3 18:01 Data reviewed: vital signs, nurses notes. bs3 18:01 ED course: d/w Dr. Haddad who notes that she does not know the patient but that she is bs3 aware of the patient notes she is at risk of uti and pneumonia from aspiration d/t the very large throat cancer, rec contact Dr. Canada who knows the patient better. . 03/24 15:27 Order name: CBC with Diff bs3 03/24 15:27 Order name: BMP bs3 03/24 15:27 Order name: Type And Screen bs3 03/24 16:24 Order name: Basic Metabolic Panel; Complete Time: 16:31 EDMS 03/24 16:29 Order name: CBC with Automated Diff; Complete Time: 17:47 EDMS 03/24 16:33 Order name: Blood Culture Adult (2) bs3 03/24 16:33 Order name: Lactate w/ 2H reflex if indic. bs3 03/24 16:33 Order name: Protime (+inr) bs3 03/24 16:33 Order name: Ptt, Activated bs3 03/24 16:38 Order name: LFT's bs3 03/24 17:13 Order name: Type and Screen; Complete Time: 22:13 EDMS 03/24 17:33 Order name: Glucose, Ancillary Testing; Complete Time: 17:34 EDMS 03/24 17:39 Order name: PTT, Activated Partial Thromb; Complete Time: 17:47 EDMS 03/24 15:27 Order name: XRAY Chest (1 view) bs3 03/24 16:08 Order name: RAD; Complete Time: 16:31 EDMS 03/24 17:39 Order name: Protime (+INR); Complete Time: 17:47 EDMS 03/24 17:40 Order name: Manual Differential; Complete Time: 17:47 EDMS 03/24 17:46 Order name: Lactate w/ 2H reflex if indic.; Complete Time: 17:47 EDMS 03/24 17:47 Order name: Liver (Hepatic) Function; Complete Time: 17:47 EDMS 03/24 17:54 Order name: Urinalysis w/ reflexes bs3 03/24 18:35 Order name: SARS RAPID ld1 03/24 18:42 Order name: Chest Wo Con CT la1 03/24 19:03 Order name: SARS-COV-2 Antigen Rapid; Complete Time: 19:58 EDMS 03/24 19:59 Order name: CT; Complete Time: 20:05 EDMS 03/24 20:26 Order name: ABO/RH no charge; Complete Time: 22:13 EDMS 03/24 21:10 Order name: Iron; Complete Time: 22:13 EDMS 03/24 21:10 Order name: Transferrin Sat/Iron Binding; Complete Time: 22:13 EDMS 03/24 21:10 Order name: Vitamin B12 Level; Complete Time: 22:13 EDMS 03/24 15:27 Order name: EKG - Nurse/Tech; Complete Time: 16:03 bs3 03/24 16:06 Order name: NPO; Complete Time: 16:06 bs3 03/24 16:33 Order name: EKG; Complete Time: 16:33 bs3 03/24 16:33 Order name: Accucheck; Complete Time: 17:26 bs3 03/24 16:33 Order name: Cardiac monitoring; Complete Time: 17:14 bs3 03/24 16:33 Order name: IV Saline Lock - Large Bore; Complete Time: 17:26 bs3 03/24 16:33 Order name: Labs collected and sent; Complete Time: 17:26 bs3 03/24 16:33 Order name: O2 Per Protocol; Complete Time: 17:14 bs3 03/24 16:33 Order name: O2 Sat Monitoring; Complete Time: 17:14 bs3 03/24 16:33 Order name: Vital Signs; Complete Time: 17:14 bs3 Administered Medications: 15:57 Drug: Ondansetron 4 mg Route: IVP; Site: left antecubital; sg5 17:26 Follow up: Response: No adverse reaction ld1 16:03 Drug: Ketorolac 15 mg Route: IVP; Site: left antecubital; sg5 17:26 Follow up: Response: No adverse reaction ld1 16:03 Drug: NS 0.9% 500 ml Route: IV; Rate: 1 bolus; Site: left antecubital; sg5 17:26 Follow up: Response: No adverse reaction ld1 17:24 Drug: vancoMYCIN 1 grams Route: IVPB; Infused Over: 2 hrs; Site: right forearm; sg5 18:58 Follow up: Response: No adverse reaction; IV Status: Completed infusion ld1 18:59 Drug: Zosyn (piperacillin-tazobactam) 3.375 grams Route: IVPB; Infused Over: 60 mins; ld1 Site: right forearm; 19:28 Drug: Dilaudid (HYDROmorphone) 0.5 mg Route: IVP; Site: left antecubital; jb4 Disposition Summary: 03/24/22 18:14 Hospitalization Ordered Hospitalization Status: Inpatient Admission bs3 Provider: Dangelo Stanley bs3 Location: Telemetry/MedSurg (Inpatient) bs3 Condition: Fair bs3 Problem: new bs3 Symptoms: have worsened bs3 Bed/Room Type: Standard bs3 Room Assignment: [facility](03/24/22 20:46) cg Diagnosis - Anemia, unspecified bs3 - Adult failure to thrive bs3 - Other pneumonia, unspecified organism bs3 Forms: - Medication Reconciliation Form bs3 - SBAR form bs3 Critical care time excluding procedures: 18:06 Critical care time: Bedside Care: 36 minutes, Consultation: 15 minutes. Total time: 51 bs3 minutes Signatures: Dispatcher [employer] EDMS Benjamín Morales, GRAPPLE OPERATOR-C GRAPPLE OPERATOR-Cla1 Lexi Miller, RN RN cg Faraz Saez, RN RN jb4 Amira Polanco RN RN ap3 Mckayla Becker RN RN ld1 Allan Isaac MD MD bs3 Aparna Rosas RN RN sg5 Corrections: (The following items were deleted from the chart) 18:03 15:27 Constitutional: This is a well developed, well nourished patient who is awake, bs3 alert, and in no acute distress. Head/Face: Normocephalic, atraumatic. Eyes: Pupils equal round and reactive to light, extra-ocular motions intact. Lids and lashes normal. ENT: mmm, no posterior phyarngeal erythema, multiple teeth removed Chest/axilla: Normal chest wall appearance and motion. Nontender with no deformity. No lesions are appreciated. Cardiovascular: tachycardic no murmur Respiratory: Lungs have equal breath sounds bilaterally, clear to auscultation, no respiratory distress Abdomen/GI: Soft, non-tender, no rebound or guarding bs3 20:46 18:14 bs3 cg
[2022-03-24 19:02] LABS: SARS-CoV-2 Antigen Rapid Res Negative (Negative)
[2022-03-24] MEDS ORDERED: HYDROMORPHONE HCL 0.5 MG/0.5 ML INJ ONE (19:17)
--- NOTE | 2022-03-24 19:59 | RAD REPORT ---
EXAM DESCRIPTION: CT - Thorax Wo Con - 03/24/2022 7:40 pm CLINICAL HISTORY: SOB COMPARISON: No comparisons FINDINGS: Chest Wall: Left supraclavicular mass measuring 2.8 cm with central low attenuation. Lungs: Multiple bilateral pulmonary nodules. Some of the nodules have associated surrounding ground-g lass opacities. There is a solid nodule in the left lower lobe which measures 8 millimeters. On the r ight, the largest solid nodule measures 11 millimeters. A couple of lesions do appear partially cavit ana luisa. Pleura: No significant effusions or pneumothorax. Mediastinum/marco: No pathologic lymphadenopathy. Pulmonary arteries/Aorta: Limited evaluation without contrast. No aortic aneurysm. Heart: No significant pericardial effusion. Normal heart size. Coronary artery calcifications. Upper abdomen: Fullness in the region of the natacha hepatis which is not well assessed without contras t. Adrenal glands appear thick. Bones: No acute abnormality. All CT scans are performed using dose optimization technique as appropriate and may include automated exposure control or mA/KV adjustment according to patient size. IMPRESSION: Multiple bilateral pulmonary nodules. Also noted is a large left supraclavicular necroti c mass or fluid collection. These findings could represent metastatic disease, septic emboli, and/or pneumonia. No prior imaging is available for comparison.
[2022-03-24] MEDS ORDERED: NA CHLORIDE 0.9% 250 ML IV SCH (20:00)
[2022-03-24] MEDS ORDERED: ALBUTEROL 2.5 MG/3 ML NEB SOL NEB PRN (20:43)
[2022-03-24] MEDS ORDERED: HYDROMORPHONE HCL 0.5 MG/0.5 ML INJ IV PRN (20:43)
[2022-03-24] MEDS ORDERED: ONDANSETRON 4 MG/2 ML VIAL IV PRN (20:43)
[2022-03-24] MEDS ORDERED: IPRATROPIUM BROM 0.5MG/2.5ML NEB PRN (20:43)
[2022-03-24] MEDS ORDERED: Ringers Lactate 1,000 ML IV SCH (21:00)
[2022-03-24 21:09] LABS: Ferritin 625.8 ng/mL (8-388)
[2022-03-24 21:59] VITALS: BMI 17.0
[2022-03-24 22:08] VITALS: BP 127/57; TEMP 99.5
--- NOTE | 2022-03-24 22:14 | P.HP ---
Certification for Inpatient Patient admitted to: Inpatient With expected LOS: >2 Midnights Patient will require the following post-hospital care: None Practitioner: I am a practitioner with admitting privileges, knowledge of patient current condition, hospital course, and medical plan of care. Services: Services provided to patient in accordance with Admission requirements found in Title 42 Section 412.3 of the Code of Federal Regulations Patient History Date of Service: 03/24/22 Reason for admission: Sepsis, pneumonia, anemia History of Present Illness: 66-year-old female with history of tongue cancer presented to the emergency department with chief complaint of dysphagia, malnutrition. She reports that due to her tongue she has not been able to eat or drink for prolonged period of time. She also had multiple teeth removed as her tongue swelling was causing issues and they were "bad". She has not began treatment or evaluation for her tongue cancer, she supposed to have a PET scan in the near future with Dr. Galeano. She reports that she has known about the cancer for approximately 6 months now. She is a current smoker. She was evaluated in the emergency department, her labs were significant for marked leukocytosis with a white blood cell count of 26.2 red blood cells 1.85 hemoglobin 6.8 hematocrit 21.5 MCV 115.9 MCH 36.5 88% neutrophils chest x-ray was performed which revealed possible multifocal pneumonia, follow-up CT chest without contrast was performed given patient's clinical history which showed multiple bilateral pulmonary nodules. Also noted is a large left supraclavicular necrotic mass or fluid collection. These findings could represent metastatic disease, septic emboli and/or pneumonia. Case was discussed with pulmonology who recommended initiation of antibiotics with vancomycin/Rocephin, also discussed with surgery Dr. Dowd who plans on performing placement of PEG tube during admission. Patient likely require drainage/aspiration of possible supraclavicular necrotic mass either with radiology or surgery during admission as well. No previous labs available for comparison, rectal exam performed in ED with soft brown stool no melena. Mild active bleeding from dental extractions. Allergies No Known Allergies Allergy (Unverified 03/18/22 14:42) Home Medications: NK [No Home Meds] 03/18/22 - Past Medical/Surgical History Has patient received pneumonia vaccine in the past: No -: Tongue cancer -: none Psychosocial/ Personal History: Patient lives at home with her family - Family History Brother History Unknown: Yes -: Cancer (Neck) - Social History Smoking Status: Current every day smoker Counseled patient to stop smoking for: less than 10 minutes Smoking therapy provided: No (Patient declined) Alcohol use: No CD- Drugs: No Caffeine use: No Place of Residence: Home Review of Systems 10-point ROS is otherwise unremarkable General: Chills ENT: Throat Swelling, Other (Trouble swallowing dental bleeding) Physical Examination - Vital Signs Temperature: 99.5 F Blood Pressure: 127/57 Pulse: 107 Respirations: 17 Pulse Ox (%): 96 - Physical Exam General: Alert, In no apparent distress, Oriented x3 HEENT: Atraumatic, PERRLA, Mucous membr. moist/pink, Other (Poor dentition, absent bottom teeth, tongue swelling), EOMI, Sclerae nonicteric Neck: Supple, 2+ carotid pulse no bruit, Without JVD or thyroid abnormality, LAD Respiratory: Diminished Cardiovascular: No edema, Regular rate/rhythm, Normal S1 S2 Capillary refill: <2 Seconds Gastrointestinal: Normal bowel sounds, No tenderness Musculoskeletal: No tenderness Integumentary: No rashes Neurological: Normal speech, Normal strength at 5/5 x4 extr, Normal tone, Normal affect - Studies Laboratory Data (last 24 hrs) 03/24/22 17:15: Total Bilirubin 0.3, AST 32, ALT 34, Alkaline Phosphatase 77 03/24/22 17:15: PT 12.6 H, INR 1.15, APTT 25.6 03/24/22 15:56: Sodium 140, Potassium 3.2 L, BUN 16, Creatinine 0.54 L, Glucose 126 H 03/24/22 15:56: WBC 26.20 H*, Hgb 6.8 L*, Hct 21.5 L, Plt Count 401 Assessment and Plan - Plan Assessment: Sepsis secondary to pneumonia, necrotic/infectious left supraclavicular mass/fluid collection Macrocytic anemia Dysphagia related to edema of the tongue/cancer Reported history of tongue cancer Hypokalemia Plan: Sepsis secondary to pneumonia, necrotic/infectious left supraclavicular mass/fluid collection Patient started on antibiotics Rocephin/vancomycin discussed case with pulmonology/general surgery. Patient likely benefit with evaluation/possible drainage of left supraclavicular mass/fluid collection with either IR or surgery. Continue broad-spectrum antibiotics, blood cultures obtained. Patient has not had full evaluation for her reported tongue cancer which was diagnosed approximate 6 months ago, she is pending a PET scan with Dr. Galeano OP. Macrocytic anemia Hemoglobin 6.8, rectal exam negative for melena. Patient denies melena, hematochezia, hematemesis. She does have bleeding from recent dental extractions, additional labs ordered for evaluation of BROOK, B12, folic acid. 1 unit PRBC ordered with follow-up labs. Dysphagia related to edema of the tongue/cancer Plans for PEG tube placement with general surgery, surgery aware. Reported history of tongue cancer Continue as above. Hypokalemia Protocol in place. DVT PPX: SCD Code status: Full Discharge Plan: Home Plan to discharge in: Greater than 2 days - Advance Directives Does patient have a Living Will: No Does patient have a Durable POA for Healthcare: No - Code Status/Comfort Care Code Status Assessed: Yes (Full code) Critical Care: No Time Spent Managing Pts Care (In Minutes): 70
[2022-03-24 22:34] VITALS: O2SAT 93
--- NOTE | 2022-03-25 01:21 | P.DS ---
Admission Date: 03/24/22 Discharge Date: 03/25/22 Reason for Admission: Sepsis, pneumonia, anemia Brief History of Present Illness: 66-year-old female with history of tongue cancer presented to the emergency department with chief complaint of dysphagia, malnutrition. She reports that due to her tongue she has not been able to eat or drink for prolonged period of time. She also had multiple teeth removed as her tongue swelling was causing issues and they were "bad". She has not began treatment or evaluation for her tongue cancer, she supposed to have a PET scan in the near future with Dr. Galeano. She reports that she has known about the cancer for approximately 6 months now. She is a current smoker. She was evaluated in the emergency department, her labs were significant for marked leukocytosis with a white blood cell count of 26.2 red blood cells 1.85 hemoglobin 6.8 hematocrit 21.5 MCV 115.9 MCH 36.5 88% neutrophils chest x-ray was performed which revealed possible multifocal pneumonia, follow-up CT chest without contrast was performed given patient's clinical history which showed multiple bilateral pulmonary nodules. Also noted is a large left supraclavicular necrotic mass or fluid collection. These findings could represent metastatic disease, septic emboli and/or pneumonia. Case was discussed with pulmonology who recommended initiation of antibiotics with vancomycin/Rocephin, also discussed with surgery Dr. Dowd who plans on performing placement of PEG tube during admission. Patient likely require drainage/aspiration of possible supraclavicular necrotic mass either with radiology or surgery during admission as well. No previous labs available for comparison, rectal exam performed in ED with soft brown stool no melena. Mild active bleeding from dental extractions. Hospital Course: Patient eloped from inpatient room, nurse went to check patient's vital signs and found her in her belongings to be absent. Surrounding areas of hospital were searched, patient was unable to be located. Patient noted to have history of leaving AMA. At time of my exam prior to admission patient was alert, oriented x3 and of sound decision-making capacity. <Benjamín Morales - Last Filed: 03/25/22 01:19> Admission Date: 03/24/22 Discharge Date: 03/25/22 <Dangelo Stanley - Last Filed: 03/28/22 16:20> Disposition: AMA-LEFT AGAINST MEDICAL ADVIC Vital Signs/Physical Exam: Temp Pulse Resp BP Pulse Ox 99.5 F 107 H 17 127/57 L 96 03/24/22 22:32 03/24/22 22:32 03/24/22 22:32 03/24/22 22:32 03/24/22 22:32 Laboratory Data at Discharge: WBC 26.20 K/uL (4.3-10.9) H* 03/24/22 15:56 Hgb 6.8 g/dL (12.0-15.0) L* 03/24/22 15:56 Hct 21.5 % (36.0-45.0) L 03/24/22 15:56 Plt Count 401 K/uL (152-406) 03/24/22 15:56 PT 12.6 SECONDS (9.5-12.5) H 03/24/22 17:15 INR 1.15 03/24/22 17:15 APTT 25.6 SECONDS (24.3-36.9) 03/24/22 17:15 Sodium 140 mmol/L (136-145) 03/24/22 15:56 Potassium 3.2 mmol/L (3.5-5.1) L 03/24/22 15:56 BUN 16 mg/dL (7-18) 03/24/22 15:56 Creatinine 0.54 mg/dL (0.55-1.02) L 03/24/22 15:56 Glucose 126 mg/dL (74-106) H 03/24/22 15:56 Total Bilirubin 0.3 mg/dL (0.2-1.0) 03/24/22 17:15 AST 32 U/L (15-37) 03/24/22 17:15 ALT 34 U/L (13-56) 03/24/22 17:15 Alkaline Phosphatase 77 U/L (45-117) 03/24/22 17:15 <Benjamín Morales - Last Filed: 03/25/22 01:19> Vital Signs/Physical Exam: Temp Pulse Resp BP Pulse Ox 99.5 F 107 H 17 127/57 L 96 03/24/22 22:32 03/24/22 22:32 03/24/22 22:32 03/24/22 22:32 03/24/22 22:32 Laboratory Data at Discharge: WBC Cancelled 03/25/22 05:00 Hgb Cancelled 03/25/22 05:00 Hct Cancelled 03/25/22 05:00 Plt Count Cancelled 03/25/22 05:00 PT 12.6 SECONDS (9.5-12.5) H 03/24/22 17:15 INR 1.15 03/24/22 17:15 APTT 25.6 SECONDS (24.3-36.9) 03/24/22 17:15 Sodium Cancelled 03/25/22 05:00 Potassium Cancelled 03/25/22 05:00 BUN Cancelled 03/25/22 05:00 Creatinine Cancelled 03/25/22 05:00 Glucose Cancelled 03/25/22 05:00 Magnesium Cancelled 03/25/22 05:00 Total Bilirubin 0.3 mg/dL (0.2-1.0) 03/24/22 17:15 AST 32 U/L (15-37) 03/24/22 17:15 ALT 34 U/L (13-56) 03/24/22 17:15 Alkaline Phosphatase 77 U/L (45-117) 03/24/22 17:15 <Dangelo Stanley - Last Filed: 03/28/22 16:20> <Benjamín Morales - Last Filed: 03/25/22 01:19> Physician Review: Patient Assessed, Agree with Above Assessment and Plan (Patient admitted and left AMA overnight prior to my assessment - Tova Stanley MD) <Dangelo Stanley - Last Filed: 03/28/22 16:20> Home Medications: NK [No Home Meds] 03/18/22 Followup: NONE,NONE [Primary Care Provider] -
[2022-03-25] MEDS ORDERED: CEFTRIAXONE 1,000 MG in NA CHLORIDE 0.9% 50 ML IVPB SCH (09:00)
[2022-03-25] MEDS ORDERED: VANCOMYCIN 1 GM in NA CHLORIDE 0.9% 250 ML IVPB SCH (21:00)
--- NOTE | 2022-03-26 16:04 | EKG ---
Test Date: 2022-03-24 Test Time: 16:00:57 Stator Plate Washer: MARIANNE MEASUREMENT RESULTS: Intervals: Rate: 96 FL: 128 QRSD: 82 QT: 322 QTc: 406 [place]: P: 45 FL: 128 QRS: 17 T: 48 INTERPRETIVE STATEMENTS: Normal sinus rhythm Septal infarct, age undetermined Abnormal ECG Compared to ECG 03/18/2022 15:05:43 No significant changes Electronically Signed On 03-26-22 16:01:04 AUTOMOTIVE DESIGNER by Jose Pruitt
== END 2022-03-25 00:57 | disposition left against medical advice (07) | DRG 871 ==
LOC: ER 15:11 → 4TH 19:03
PROVIDERS: ADMIT Hospitalist; ATTEND Hospitalist
DX: A41.9 Sepsis, unspecified organism (principal); J18.9 Pneumonia, unspecified organism; Z68.1 Body mass index [BMI] 19.9 or less, adult; D53.9 Nutritional anemia, unspecified; E87.6 Hypokalemia; C02.9 Malignant neoplasm of tongue, unspecified; F17.210 Nicotine dependence, cigarettes, uncomplicated; R91.8 Other nonspecific abnormal finding of lung field; R22.1 Localized swelling, mass and lump, neck; R62.7 Adult failure to thrive; Z71.6 Tobacco abuse counseling; Z53.29 Procedure and treatment not carried out because of patient's decision for other reasons; Z28.310 Unvaccinated for COVID-19; Z20.822 Contact with and (suspected) exposure to COVID-19
CPT/HCPCS: 36415; 71045; 71250; 80048; 80076; 82607; 82728; 82747; 82947; 83540; 83605; 84466; 85025; 85610; 85730; 86850; 86900; 86901; 87040; 87811; 93005; 99284; J1170; J2405; J2543; J3370; J7040; J7050; J7120

== ENCOUNTER 2022-04-04 07:02 | Emergency (ER) | payer OTHER, BC ==
--- OUTSIDE RECORDS SUMMARY | 2022-04-04 07:07 | XMS REPORT | Continuity of Care Document ---
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 <=65. The reference range was not used to interpr et this result as mor l/abnormal. [facility]2018-04-04 08:25:00 Test Item Value Reference Range Interpretation Comments BUN (test code = BUN) 6 7-22 [facility]2018-04-04 08:25:00 Test Item Value Reference Range Interpretation Comments Creatinine Lvl (test code = Creatinine 0.65 0.50-1.40 Lvl) [facility]2018-04-04 08:25:00 Test Item Value Reference Range Interpretation Comments Sodium Lvl (test code = Sodium Lvl) 140 135-145 [facility]2018-04-04 08:25:00 Test Item Value Reference Range Interpretation Comments Potassium Lvl (test code = Potassium 3.7 3.5-5.1 Lvl) [facility]2018-04-04 08:25:00 Test Item Value Reference Range Interpretation Comments Chloride Lvl (test code = Chloride Lvl) 105 95-109 [facility]2018-04-04 08:25:00 Test Item Value Reference Range Interpretation Comments Glucose Lvl (test code = Glucose Lvl) 99 70-99 [facility]2018-04-04 08:25:00 Test Item Value Reference Range Interpretation Comments A/G Ratio (test code = A/G Ratio) 0.6 1 0.7-1.6 [place] 284418-04-04 08:25:00 Test Item Value Reference Range Interpretation Comments Globulin (test code = Globulin) 5.1 2.7-4.2 [place] 284418-04-04 08:25:00 Test Item Value Reference Range Interpretation Comments B/C Ratio (test code = B/C Ratio) 9 1 6-25 [facility]2018-04-04 08:25:00 Test Item Value Reference Range Interpretation Comments AGAP (test code = AGAP) 11.7 10.0-20.0 [facility]ZtpornrWBNLNHNDRG5754-24-02 08:25:00 Test Item Value Reference Range Interpretation Comments MCV (test code = MCV) 89.0 80.0-98.0 [facility]TrfnjktACYKCMDIYM6120-64-85 08:25:00 Test Item Value Reference Range Interpretation Comments Hct (test code = Hct) 42.4 36.0-48.0 [facility]CxlzteaZTOVOTZXOG3216-45-42 08:25:00 Test Item Value Reference Range Interpretation Comments WBC (test code = WBC) 8.8 3.7-10.4 [facility]EecckguVIUSYVUJMJ2515-61-66 08:25:00 Test Item Value Reference Range Interpretation Comments Hgb (test code = Hgb) 13.9 12.0-16.0 [facility]EwtzqrmDJRGYDAVJC7687-16-15 08:25:00 Test Item Value Reference Range Interpretation Comments MPV (test code = MPV) 9.0 7.4-10.4 [facility]SgsbaocGRLMCQZXFH8745-57-19 08:25:00 Test Item Value Reference Range Interpretation Comments RBC (test code = RBC) 4.76 4.20-5.40 [facility]NxngpxhWYIJPJIPUI7407-43-94 08:25:00 Test Item Value Reference Range Interpretation Comments Platelet (test code = Platelet) 296 133-450 [facility]GxjwhmrMAGGHYJPPR3834-09-34 08:25:00 Test Item Value Reference Range Interpretation Comments RDW (test code = RDW) 12.5 11.5-14.5 [facility]KutamkvQPYTFJXBEM4375-46-85 08:25:00 Test Item Value Reference Range Interpretation Comments MCHC (test code = MCHC) 32.8 32.0-36.0 [facility]KjxkluoXJJQMYPOYM6720-82-63 08:25:00 Test Item Value Reference Range Interpretation Comments MCH (test code = MCH) 29.2 pg 27.0-31.0 [facility]LcalbkzDMXHZACMOC8472-20-72 08:25:00 Test Item Value Reference Range Interpretation Comments Eosinophils # (test code 0.2 See_Comment [A utomated message] The = Eosinophils #) system whic h generated this result tra nsmitted reference range : <=0.5. The reference r samara was not used to int erpret this result as normal/abnormal . [facility]XdoeuikBJIDIMDKUW7995-83-00 08:25:00 Test Item Value Reference Range Interpretation Comments Monocytes # (test code 0.8 See_Comment [Aut omated message] The = Monocytes #) system which generated this result tra nsmitted reference range : <=0.8. The reference r samara was not used to int erpret this result as normal/abnormal . [facility]ZblitnlRFPZWKWHRA7510-93-73 08:25:00 Test Item Value Reference Range Interpretation Comments Lymphocytes # (test code = Lymphocytes 2.2 1.0-5.5 #) [facility]RwyqwdaTUDFXOAJXL5298-61-61 08:25:00 Test Item Value Reference Range Interpretation Comments Segs-Bands # (test code = Segs-Bands #) 5.6 1.5-8.1 [facility]ZbtratjDQBFGENOJB3702-41-27 08:25:00 Test Item Value Reference Range Interpretation Comments Eosinophils (test code = 2.3 See_Comment [A utomated message] The Eosinophils) system which ge nerated this result tra nsmitted reference range : <=4.0. The reference r samara was not used to int erpret this result as normal/abnormal . [facility]ImhkmnvVDUJIGAZNT5432-80-76 08:25:00 Test Item Value Reference Range Interpretation Comments Basophils (test code = 0.5 See_Comment [Aut omated message] The Basophils) system which ge nerated this result tra nsmitted reference range : <=1.0. The reference r samara was not used to int erpret this result as normal/abnormal . [facility]ZpoqnxxCZZWVEEDHM6345-70-13 08:25:00 Test Item Value Reference Range Interpretation Comments Lymphocytes (test code = Lymphocytes) 24.7 20.0-40.0 [facility]TkqwhloGDVPAFUVXL5140-84-38 08:25:00 Test Item Value Reference Range Interpretation Comments Segs (test code = Segs) 63.9 45.0-75.0 [facility]FsfxczbDEOPPMQOAS4516-67-88 08:25:00 Test Item Value Reference Range Interpretation Comments Monocytes (test code = Monocytes) 8.6 2.0-12.0 [facility]2018-04-04 01:14:00 Test Item Value Reference Range Interpretation Comments Ammonia (test code = Ammonia) 32.0 [facility]2018-04-04 01:14:00 Test Item Value Reference Range Interpretation Comments Ammonia (test code = Ammonia) 32.0 [place] [id number] 19:40:00 Test Item Value Reference Range Interpretation Comments Acetaminoph Lvl (test code = (05/10/17 2:40 PM) 10-20 Acetaminoph Lvl) [place] [id number] 19:40:00 Test Item Value Reference Range Interpretation Comments Salicylate Lvl (test no gt See_Comment [Autom ated message] The code = Salicylate Lvl) syste m which generated this result tra nsmitted reference range : <=30.0. The reference r samara was not used to int erpret this result as normal/abnormal . [place] [id number] 19:40:00 Test Item Value Reference Range Interpretation Comments Etoh (%) (test code = Etoh (%)) <0.003 % [place] [id number] 19:40:00 Test Item Value Reference Range Interpretation Comments Ethanol Lvl (test code = Ethanol <3.0 mg/dL Lvl) [place] [id number] 19:40:00 Test Item Value Reference Range Interpretation Comments Acetaminoph Lvl (test code = (05/10/17 2:40 PM) 10-20 Acetaminoph Lvl) [place] [id number] 19:40:00 Test Item Value Reference Range Interpretation Comments Salicylate Lvl (test no gt See_Comment [Autom ated message] The code = Salicylate Lvl) syste m which generated this result tra nsmitted reference range : <=30.0. The reference r samara was not used to int erpret this result as normal/abnormal . [place] [id number] 19:40:00 Test Item Value Reference Range Interpretation Comments Etoh (%) (test code = Etoh (%)) <0.003 % [place] 993168-04-03 19:40:00 Test Item Value Reference Range Interpretation Comments Ethanol Lvl (test code = Ethanol <3.0 mg/dL Lvl) [facility] [id number] 19:36:00 Test Item Value Reference Range Interpretation Comments UA Urobilinogen (test code = UA <=1.0 mg/dL 0.1-1.0 Urobilinogen) [facility] [id number] 19:36:00 Test Item Value Reference Range Interpretation Comments UA WBC (test code = no gt See_Comment [Automa heena message] The UA WBC) system which ge nerated this result transmit heena reference range : <=5. The reference range was not used to interpr et this result as mor l/abnormal. [facility] [id number] 19:36:00 Test Item Value Reference Range Interpretation Comments UA RBC (test code = no gt See_Comment [Automa heena message] The UA RBC) system which ge nerated this result transmit heena reference range : <=2. The reference range was not used to interpr et this result as mor l/abnormal. [facility] [id number] 19:36:00 Test Item Value Reference Range Interpretation Comments UA Turbidity (test code = Clear (05/10/17 2:36 UA Turbidity) PM) [facility] [id number] 19:36:00 Test Item Value Reference Range Interpretation Comments UA Color (test code = Light Yellow UA Color) *NA*(05/10/17 2:36 PM) [facility] [id number] 19:36:00 Test Item Value Reference Range Interpretation Comments UA Sq Epi (test code = UA Sq Epi) None Seen [facility] [id number] 19:36:00 Test Item Value Reference Range Interpretation Comments UA Mucus (test code = UA Mucus) Few /LPF [facility] [id number] 19:36:00 Test Item Value Reference Range Interpretation Comments UA Bili (test code = Negative *NA*(05/10/17 UA Bili) 2:36 PM) [facility] [id number] 19:36:00 Test Item Value Reference Range Interpretation Comments UA Ketones (test code = UA Negative mg/dL Ketones) [facility] [id number] 19:36:00 Test Item Value Reference Range Interpretation Comments UA Blood (test code = Negative (05/10/17 2:36 UA Blood) PM) [facility] [id number] 19:36:00 Test Item Value Reference Range Interpretation Comments UA Spec Grav (test code = UA Spec 1.018 1 Grav) [facility] [id number] 19:36:00 Test Item Value Reference Range Interpretation Comments UA pH (test code = UA pH) 7.5 1 5.0-8.0 [facility] [id number] 19:36:00 Test Item Value Reference Range Interpretation Comments UA Leuk Est (test Negative (05/10/17 2:36 code = UA Leuk Est) PM) [facility] [id number] 19:36:00 Test Item Value Reference Range Interpretation Comments UA Nitrite (test code Negative (05/10/17 2:36 = UA Nitrite) PM) [facility] [id number] 19:36:00 Test Item Value Reference Range Interpretation Comments UA Protein (test code = UA Negative mg/dL Protein) [facility] [id number] 19:36:00 Test Item Value Reference Range Interpretation Comments UA Glucose (test code = UA Negative mg/dL Glucose) [facility] [id number] 19:36:00 Test Item Value Reference Range Interpretation Comments UA Urobilinogen (test code = UA <=1.0 mg/dL 0.1-1.0 Urobilinogen) [facility] [id number] 19:36:00 Test Item Value Reference Range Interpretation Comments UA WBC (test code = no gt See_Comment [Automa heena message] The UA WBC) system which ge nerated this result transmit heena reference range : <=5. The reference range was not used to interpr et this result as mor l/abnormal. [facility] [id number] 19:36:00 Test Item Value Reference Range Interpretation Comments UA RBC (test code = no gt See_Comment [Automa heena message] The UA RBC) system which ge nerated this result transmit heena reference range : <=2. The reference range was not used to interpr et this result as mor l/abnormal. [facility] [id number] 19:36:00 Test Item Value Reference Range Interpretation Comments UA Turbidity (test code = Clear (05/10/17 2:36 UA Turbidity) PM) [facility] [id number] 19:36:00 Test Item Value Reference Range Interpretation Comments UA Color (test code = Light Yellow UA Color) *NA*(05/10/17 2:36 PM) [facility] [id number] 19:36:00 Test Item Value Reference Range Interpretation Comments UA Sq Epi (test code = UA Sq Epi) None Seen [facility] [id number] 19:36:00 Test Item Value Reference Range Interpretation Comments UA Mucus (test code = UA Mucus) Few /LPF [facility] [id number] 19:36:00 Test Item Value Reference Range Interpretation Comments UA Bili (test code = Negative *NA*(05/10/17 UA Bili) 2:36 PM) [facility] [id number] 19:36:00 Test Item Value Reference Range Interpretation Comments UA Ketones (test code = UA Negative mg/dL Ketones) [facility] [id number] 19:36:00 Test Item Value Reference Range Interpretation Comments UA Blood (test code = Negative (05/10/17 2:36 UA Blood) PM) [facility] [id number] 19:36:00 Test Item Value Reference Range Interpretation Comments UA Spec Grav (test code = UA Spec 1.018 1 Grav) [facility] [id number] 19:36:00 Test Item Value Reference Range Interpretation Comments UA pH (test code = UA pH) 7.5 1 5.0-8.0 [facility] [id number] 19:36:00 Test Item Value Reference Range Interpretation Comments UA Leuk Est (test Negative (05/10/17 2:36 code = UA Leuk Est) PM) [facility] [id number] 19:36:00 Test Item Value Reference Range Interpretation Comments UA Nitrite (test code Negative (05/10/17 2:36 = UA Nitrite) PM) [facility] [id number] 19:36:00 Test Item Value Reference Range Interpretation Comments UA Protein (test code = UA Negative mg/dL Protein) [facility] [id number] 19:36:00 Test Item Value Reference Range Interpretation Comments UA Glucose (test code = UA Negative mg/dL Glucose) [id number] 19:35:00 Test Item Value Reference Range Interpretation Comments U Cocaine Scr (test Negative *NA*(05/10/17 code = U Cocaine Scr) 2:35 PM) [facility] [id number] 19:35:00 Test Item Value Reference Range Interpretation Comments U Zoe Scr (test code Negative *NA*(05/10/17 = U Zoe Scr) 2:35 PM) [facility] [id number] 19:35:00 Test Item Value Reference Range Interpretation Comments U Benzodia Scr (test Negative *NA*(05/10/17 code = U Benzodia Scr) 2:35 PM) [facility] [id number] 19:35:00 Test Item Value Reference Range Interpretation Comments U Opiate Scr (test Negative *NA*(05/10/17 code = U Opiate Scr) 2:35 PM) [facility] [id number] 19:35:00 Test Item Value Reference Range Interpretation Comments U Amph Scr (test code Positive *ABN*(05/10/17 = U Amph Scr) 2:35 PM) [facility] [id number] 19:35:00 Test Item Value Reference Range Interpretation Comments U Cannab Scr (test Negative *NA*(05/10/17 code = U Cannab Scr) 2:35 PM) [facility] [id number] 19:35:00 Test Item Value Reference Range Interpretation Comments U Phencyc Scr (test Negative *NA*(05/10/17 code = U Phencyc Scr) 2:35 PM) [facility] [id number] 19:35:00 Test Item Value Reference Range Interpretation Comments UDS Note (test code = See Note (05/10/17 2:35 UDS Note) PM) [facility] [id number] 19:35:00 Test Item Value Reference Range Interpretation Comments U Cocaine Scr (test Negative *NA*(05/10/17 code = U Cocaine Scr) 2:35 PM) [facility] [id number] 19:35:00 Test Item Value Reference Range Interpretation Comments U Zoe Scr (test code Negative *NA*(05/10/17 = U Zoe Scr) 2:35 PM) [facility] [id number] 19:35:00 Test Item Value Reference Range Interpretation Comments U Benzodia Scr (test Negative *NA*(05/10/17 code = U Benzodia Scr) 2:35 PM) [facility] [id number] 19:35:00 Test Item Value Reference Range Interpretation Comments U Opiate Scr (test Negative *NA*(05/10/17 code = U Opiate Scr) 2:35 PM) [facility] [id number] 19:35:00 Test Item Value Reference Range Interpretation Comments U Amph Scr (test code Positive *ABN*(05/10/17 = U Amph Scr) 2:35 PM) [facility] [id number] 19:35:00 Test Item Value Reference Range Interpretation Comments U Cannab Scr (test Negative *NA*(05/10/17 code = U Cannab Scr) 2:35 PM) [facility] [id number] 19:35:00 Test Item Value Reference Range Interpretation Comments U Phencyc Scr (test Negative *NA*(05/10/17 code = U Phencyc Scr) 2:35 PM) [facility] [id number] 19:35:00 Test Item Value Reference Range Interpretation Comments UDS Note (test code = See Note (05/10/17 2:35 UDS Note) PM) [facility] [id number] 17:17:00 Test Item Value Reference Range Interpretation Comments CDC HIV 4th GEN (test Negative *NA*(05/10/17 code = CDC HIV 4th 12:17 PM) GEN) [facility] [id number] 17:17:00 Test Item Value Reference Range Interpretation Comments CDC HIV 4th GEN (test Negative *NA*(05/10/17 code = CDC HIV 4th 12:17 PM) GEN) [facility] [id number] 17:12:00 Test Item Value Reference Range Interpretation Comments Lactic Acid Lvl (test code = Lactic 1.3 0.5-2.2 Acid Lvl) [facility] [id number] 17:12:00 Test Item Value Reference Range Interpretation Comments Lactic Acid Lvl (test code = Lactic 1.2 0.5-2.2 Acid Lvl) [facility]2018-04-03 17:12:00 Test Item Value Reference Range Interpretation Comments Lactic Acid Lvl (test code = Lactic 1.3 0.5-2.2 Acid Lvl) [facility]2018-04-03 17:12:00 Test Item Value Reference Range Interpretation Comments Lactic Acid Lvl (test code = Lactic 1.2 0.5-2.2 Acid Lvl) [facility]2018-04-03 13:30:00 Test Item Value Reference Range Interpretation Comments eGFR (test code = eGFR) 79 [facility]2018-04-03 13:30:00 Test Item Value Reference Range Interpretation Comments Potassium Lvl (test code = Potassium 3.3 3.5-5.1 Lvl) [facility]2018-04-03 13:30:00 Test Item Value Reference Range Interpretation Comments Chloride Lvl (test code = Chloride Lvl) 105 95-109 [facility]2018-04-03 13:30:00 Test Item Value Reference Range Interpretation Comments CO2 (test code = CO2) 25 24-32 [facility]2018-04-03 13:30:00 Test Item Value Reference Range Interpretation Comments Calcium Lvl (test code = Calcium Lvl) 8.5 8.5-10.5 [facility]2018-04-03 13:30:00 Test Item Value Reference Range Interpretation Comments Sodium Lvl (test code = Sodium Lvl) 138 135-145 [facility]2018-04-03 13:30:00 Test Item Value Reference Range Interpretation Comments Creatinine Lvl (test code = Creatinine 0.81 0.50-1.40 Lvl) [facility]2018-04-03 13:30:00 Test Item Value Reference Range Interpretation Comments Glucose Lvl (test code = Glucose Lvl) 123 70-99 [facility]2018-04-03 13:30:00 Test Item Value Reference Range Interpretation Comments BUN (test code = BUN) 9 7-22 [facility]2018-04-03 13:30:00 Test Item Value Reference Range Interpretation Comments AGAP (test code = AGAP) 11.3 10.0-20.0 [facility]2018-04-03 13:30:00 Test Item Value Reference Range Interpretation Comments Lactic Acid Lvl (test code = Lactic 2.3 0.5-2.2 Acid Lvl) [id number] 13:30:00 Test Item Value Reference Range Interpretation Comments K-time Rapid (test code = K-time 0.8 min 0.6-2.3 Rapid) [id number] 13:30:00 Test Item Value Reference Range Interpretation Comments Angle Rapid (test code = Angle 80 degrees 64-80 Rapid) [id number] 13:30:00 Test Item Value Reference Range Interpretation Comments Split Point Rapid (test code = Split 0.6 min Point Rapid) [facility]HlxrlfkVNVNQSBBGR2920-01-05 13:30:00 Test Item Value Reference Range Interpretation Comments R-time Rapid (test code = R-time 0.7 min 0.4-0.7 Rapid) [id number] 13:30:00 Test Item Value Reference Range Interpretation Comments ACT (TEG) Rapid (test code = ACT (TEG) 113 s 86-118 Rapid) [facility] He[id number] 13:30:00 Test Item Value Reference Range Interpretation Comments Estimated % Lysis Rapid 3.4 See_Comment [Au tomated message] The (test code = Estimated syste m which generated % Lysis Rapid) this result t ransmitted reference range : <=7.5. The reference r samara was not used to int erpret this result as normal/abnormal . [facility] He[id number] 13:30:00 Test Item Value Reference Range Interpretation Comments G-value Rapid (test code = G-value 12.7 5.0-11.6 Rapid) [id number] 13:30:00 Test Item Value Reference Range Interpretation Comments Max Amplitude Rapid (test code = Max 72 mm 52-71 Amplitude Rapid) [id number] 13:30:00 Test Item Value Reference Range Interpretation Comments Monocytes # (test code 0.7 See_Comment [Aut omated message] The = Monocytes #) system which generated this result tra nsmitted reference range : <=0.8. The reference r samara was not used to int erpret this result as normal/abnormal . [facility]InyjsisRPHODUBXPT2645-71-71 13:30:00 Test Item Value Reference Range Interpretation Comments Basophils (test code = 0.3 See_Comment [Aut omated message] The Basophils) system which ge nerated this result tra nsmitted reference range : <=1.0. The reference r samara was not used to int erpret this result as normal/abnormal . [facility]MvuzmmsUNBPKOGUQS8273-01-79 13:30:00 Test Item Value Reference Range Interpretation Comments Segs-Bands # (test code = Segs-Bands #) 7.7 1.5-8.1 [id number] 13:30:00 Test Item Value Reference Range Interpretation Comments Lymphocytes # (test code = Lymphocytes 1.4 1.0-5.5 #) [facility]OelzhmlWLMLEEXIQK1744-92-82 13:30:00 Test Item Value Reference Range Interpretation Comments Monocytes (test code = Monocytes) 6.9 2.0-12.0 [facility]DxpubdaXJTSJSEWTD0838-60-56 13:30:00 Test Item Value Reference Range Interpretation Comments Lymphocytes (test code = Lymphocytes) 14.0 20.0-40.0 [facility]SqkkzdaWJAUDAYKUF9514-55-41 13:30:00 Test Item Value Reference Range Interpretation Comments Eosinophils (test code = 1.7 See_Comment [A utomated message] The Eosinophils) system which ge nerated this result tra nsmitted reference range : <=4.0. The reference r samara was not used to int erpret this result as normal/abnormal . [facility]InntlodJRDKXTHZXS9835-78-28 13:30:00 Test Item Value Reference Range Interpretation Comments Segs (test code = Segs) 77.1 45.0-75.0 [facility]UtufekzSQNCVFMMNI5703-34-42 13:30:00 Test Item Value Reference Range Interpretation Comments Eosinophils # (test code 0.2 See_Comment [A utomated message] The = Eosinophils #) system whic h generated this result tra nsmitted reference range : <=0.5. The reference r samara was not used to int erpret this result as normal/abnormal . [facility]MquqrrvATCMFKOVZL5188-71-80 13:30:00 Test Item Value Reference Range Interpretation Comments MCH (test code = MCH) 29.2 pg 27.0-31.0 [facility]VedpvqxAWVJVGSVJH8814-50-06 13:30:00 Test Item Value Reference Range Interpretation Comments MCHC (test code = MCHC) 33.1 32.0-36.0 [facility]QmrzhmdJZTTQCLLRE4189-72-68 13:30:00 Test Item Value Reference Range Interpretation Comments MCV (test code = MCV) 88.3 80.0-98.0 [facility]LvgfxncMSACMKCYJW0975-37-62 13:30:00 Test Item Value Reference Range Interpretation Comments MPV (test code = MPV) 9.0 7.4-10.4 [facility]VmzujlcLDLHQWEDOP4057-37-26 13:30:00 Test Item Value Reference Range Interpretation Comments Platelet (test code = Platelet) 268 133-450 [facility]BrhwtwvZGDPOKFBCA1079-52-63 13:30:00 Test Item Value Reference Range Interpretation Comments RDW (test code = RDW) 13.0 11.5-14.5 [facility]HvpktqoTKYTMJBQEX0045-14-38 13:30:00 Test Item Value Reference Range Interpretation Comments Hct (test code = Hct) 40.3 36.0-48.0 [facility]UdzhjmjXIAJLFYYJU2816-81-61 13:30:00 Test Item Value Reference Range Interpretation Comments RBC (test code = RBC) 4.57 4.20-5.40 [facility]ZeavsmtUALVEJCYAP3630-87-03 13:30:00 Test Item Value Reference Range Interpretation Comments Hgb (test code = Hgb) 13.3 12.0-16.0 [facility]YcgannpQGRNFKPDZK5168-85-64 13:30:00 Test Item Value Reference Range Interpretation Comments WBC (test code = WBC) 10.0 3.7-10.4 [facility]2018-04-03 13:30:00 Test Item Value Reference Range Interpretation Comments eGFR (test code = eGFR) 79 [facility]2018-04-03 13:30:00 Test Item Value Reference Range Interpretation Comments Potassium Lvl (test code = Potassium 3.3 3.5-5.1 Lvl) [facility]2018-04-03 13:30:00 Test Item Value Reference Range Interpretation Comments Chloride Lvl (test code = Chloride Lvl) 105 95-109 [facility]2018-04-03 13:30:00 Test Item Value Reference Range Interpretation Comments CO2 (test code = CO2) 25 24-32 [facility]2018-04-03 13:30:00 Test Item Value Reference Range Interpretation Comments Calcium Lvl (test code = Calcium Lvl) 8.5 8.5-10.5 [facility]2018-04-03 13:30:00 Test Item Value Reference Range Interpretation Comments Sodium Lvl (test code = Sodium Lvl) 138 135-145 [facility]2018-04-03 13:30:00 Test Item Value Reference Range Interpretation Comments Creatinine Lvl (test code = Creatinine 0.81 0.50-1.40 Lvl) [facility]2018-04-03 13:30:00 Test Item Value Reference Range Interpretation Comments Glucose Lvl (test code = Glucose Lvl) 123 70-99 [facility]2018-04-03 13:30:00 Test Item Value Reference Range Interpretation Comments BUN (test code = BUN) 9 7-22 [facility]2018-04-03 13:30:00 Test Item Value Reference Range Interpretation Comments AGAP (test code = AGAP) 11.3 10.0-20.0 [facility]2018-04-03 13:30:00 Test Item Value Reference Range Interpretation Comments Lactic Acid Lvl (test code = Lactic 2.3 0.5-2.2 Acid Lvl) [facility]PtrsjuqGUUXETFQMO1527-77-58 13:30:00 Test Item Value Reference Range Interpretation Comments K-time Rapid (test code = K-time 0.8 min 0.6-2.3 Rapid) [id number] 13:30:00 Test Item Value Reference Range Interpretation Comments Angle Rapid (test code = Angle 80 degrees 64-80 Rapid) [facility]LctnvnnLSRLHHUCWI8169-19-16 13:30:00 Test Item Value Reference Range Interpretation Comments Split Point Rapid (test code = Split 0.6 min Point Rapid) [facility]TfuxsfqURQFKMWTEH6854-58-51 13:30:00 Test Item Value Reference Range Interpretation Comments R-time Rapid (test code = R-time 0.7 min 0.4-0.7 Rapid) [place] [address]-04-03 13:30:00 Test Item Value Reference Range Interpretation Comments ACT (TEG) Rapid (test code = ACT (TEG) 113 s 86-118 Rapid) [facility]SkcfvzhMTWCPDFGQZ1988-47-07 13:30:00 Test Item Value Reference Range Interpretation Comments Estimated % Lysis Rapid 3.4 See_Comment [Au tomated message] The (test code = Estimated syste m which generated % Lysis Rapid) this result t ransmitted reference range : <=7.5. The reference r samara was not used to int erpret this result as normal/abnormal . [facility]VlqssehBMVOLVGCJX5806-97-83 13:30:00 Test Item Value Reference Range Interpretation Comments G-value Rapid (test code = G-value 12.7 5.0-11.6 Rapid) [id number] 13:30:00 Test Item Value Reference Range Interpretation Comments Max Amplitude Rapid (test code = Max 72 mm 52-71 Amplitude Rapid) [facility]KfjidxfFGYZJLBWFE6174-23-89 13:30:00 Test Item Value Reference Range Interpretation Comments Monocytes # (test code 0.7 See_Comment [Aut omated message] The = Monocytes #) system which generated this result tra nsmitted reference range : <=0.8. The reference r samara was not used to int erpret this result as normal/abnormal . [facility]KoppxkuNGJKVADRQH9120-90-35 13:30:00 Test Item Value Reference Range Interpretation Comments Basophils (test code = 0.3 See_Comment [Aut omated message] The Basophils) system which ge nerated this result tra nsmitted reference range : <=1.0. The reference r samara was not used to int erpret this result as normal/abnormal . [facility]MyqvileDTFTTJMKLF6900-37-80 13:30:00 Test Item Value Reference Range Interpretation Comments Segs-Bands # (test code = Segs-Bands #) 7.7 1.5-8.1 [facility]OmchbewMRMESWMMBH3101-88-67 13:30:00 Test Item Value Reference Range Interpretation Comments Lymphocytes # (test code = Lymphocytes 1.4 1.0-5.5 #) [facility]EekwrmkITUHDJFIHP7338-25-58 13:30:00 Test Item Value Reference Range Interpretation Comments Monocytes (test code = Monocytes) 6.9 2.0-12.0 [facility]EexxpzqRRIHEBPQBK1749-70-59 13:30:00 Test Item Value Reference Range Interpretation Comments Lymphocytes (test code = Lymphocytes) 14.0 20.0-40.0 [facility]IizbbqdCIEAIGTNUS8569-08-11 13:30:00 Test Item Value Reference Range Interpretation Comments Eosinophils (test code = 1.7 See_Comment [A utomated message] The Eosinophils) system which ge nerated this result tra nsmitted reference range : <=4.0. The reference r samara was not used to int erpret this result as normal/abnormal . [facility]WmfvpsfEZBFWPPWIQ6256-91-79 13:30:00 Test Item Value Reference Range Interpretation Comments Segs (test code = Segs) 77.1 45.0-75.0 [facility]ZyqcgvpBNNUFKUVAV1096-09-30 13:30:00 Test Item Value Reference Range Interpretation Comments Eosinophils # (test code 0.2 See_Comment [A utomated message] The = Eosinophils #) system whic h generated this result tra nsmitted reference range : <=0.5. The reference r samara was not used to int erpret this result as normal/abnormal . [facility]BchrwitNAINXGEBYR7686-79-39 13:30:00 Test Item Value Reference Range Interpretation Comments MCH (test code = MCH) 29.2 pg 27.0-31.0 [facility]SnbzyyjENWUYLIEXC7338-03-40 13:30:00 Test Item Value Reference Range Interpretation Comments MCHC (test code = MCHC) 33.1 32.0-36.0 [facility]OpfkoltQODUWLHJAL7151-27-71 13:30:00 Test Item Value Reference Range Interpretation Comments MCV (test code = MCV) 88.3 80.0-98.0 [facility]VllxxtbLVZTCAOHJH4300-48-61 13:30:00 Test Item Value Reference Range Interpretation Comments MPV (test code = MPV) 9.0 7.4-10.4 [facility]ZbrerngDULPBVISDF2762-38-24 13:30:00 Test Item Value Reference Range Interpretation Comments Platelet (test code = Platelet) 268 133-450 [facility]DgeogltKODHQULSQN8902-97-10 13:30:00 Test Item Value Reference Range Interpretation Comments RDW (test code = RDW) 13.0 11.5-14.5 [facility]YkxjupnQUFYKHRXAJ0954-35-59 13:30:00 Test Item Value Reference Range Interpretation Comments Hct (test code = Hct) 40.3 36.0-48.0 [facility]RdsrvggTGUXSEKGDU2384-18-42 13:30:00 Test Item Value Reference Range Interpretation Comments RBC (test code = RBC) 4.57 4.20-5.40 [facility]PxoqebtMXXIGUZIHK6683-99-79 13:30:00 Test Item Value Reference Range Interpretation Comments Hgb (test code = Hgb) 13.3 12.0-16.0 [facility]EmffvyyNYGGMODBIN8542-28-58 13:30:00 Test Item Value Reference Range Interpretation Comments WBC (test code = WBC) 10.0 3.7-10.4 [facility]
--- NOTE | 2022-04-04 08:10 | RAD REPORT ---
EXAM DESCRIPTION: RADChest Single View04/04/2022 8:03 am CLINICAL HISTORY: recent untreated pneumonia COMPARISON: Chest Single View dated 03/24/2022 TECHNIQUE: Portable AP view of the chest. FINDINGS: Bilateral patchy airspace opacities, most pronounced in the peripheral right upper lobe. T hese are stable in distribution. Probable calcified granuloma projecting over the left cardiac border . No pneumothorax or effusion. The cardiomediastinal contours are unremarkable. IMPRESSION: Stable bilateral airspace opacities as above.
[2022-04-04 08:11] LABS: Hematocrit 30.4 % (36.0-45.0); Lymphocytes % 2.1 % (15.3-44.8); MCV 107.7 fL (80-100); MPV 7.9 fL (7.6-11.3); RBC Red Blood Cell Count 2.82 M/uL (3.86-4.86)
[2022-04-04 08:20] LABS: Potassium 3.3 mmol/L (3.5-5.1)
[2022-04-04] MEDS ORDERED: NA CHLORIDE 0.9% 1,000 ML ONE (08:37)
[2022-04-04] MEDS ORDERED: ONDANSETRON 4 MG/2 ML VIAL ONE (08:42)
[2022-04-04] MEDS ORDERED: MORPHINE 4 MG/ML SYR ONE (08:42)
[2022-04-04 08:43] LABS: Protime INR 1.27
[2022-04-04 08:51] LABS: Blood Morphology Comment NOTED (NOT SEEN); White Blood Cell Scan OK (OK)
[2022-04-04 08:52] LABS: Anisocytosis 1+; Macrocytosis 1+; Platelet Estimate ADEQ
[2022-04-04 08:56] LABS: SARS-CoV-2 Antigen Rapid Res Negative (Negative)
[2022-04-04] MEDS ORDERED: dexAMETHasone 10 MG/ML VIAL ONE (09:39)
[2022-04-04] MEDS ORDERED: PIPERACIL/TAZO 3.375 GM VIAL IV ONE (09:39)
--- NOTE | 2022-04-04 09:43 | RAD REPORT ---
EXAM DESCRIPTION: CT - Soft Tissue Neck W/Contr CLINICAL HISTORY: mouth swelling, cancer COMPARISON: Thorax Wo Con dated 03/24/2022; Thorax W/ Con dated 04/04/[address]22 [address] Thin cut axial CT images of the neck performed following intravenous administration of Iso pat 300. All CT scans are performed using dose optimization technique as appropriate and may include automated exposure control or mA/KV adjustment according to patient size. FINDINGS: Large heterogeneously enhancing mass involving the left retromolar trigone and left base o f tongue measuring 6.7 x 4.7 x 5.4 centimeter in greatest AP, transverse, and CC dimensions. The mass crosses the midline, and extends caudally to involve the deep muscles of the tongue. Mass-effect upo n the nasopharyngeal and oropharyngeal airway, which measures 7 millimeter at the narrowest, at the l evel of the epiglottis. Satellite centrally necrotic marginally enhancing nodules, within the right aspect of the deep muscle s of the tongue, as well as a similar nodule versus necrotic lymph node just anterior to the hyoid price dy left of midline. Numerous centrally necrotic lymph nodes throughout the the neck spaces bilaterally. The largest is ce ntered on level 3 on the left, measuring 4.4 x 3.9 centimeter in greatest axial dimensions. It abuts the left carotid space, encircling approximately 90 degrees of the left common carotid circumference . Second largest lymph node is present at level 1B on the left, measuring 4.1 x 3.7 centimeter. A janiya trally necrotic left level 2 A lymph node measures 2.6 x 2.1 centimeter, and abuts less than 90 degre es of the left internal carotid artery circumference. The largest right level 2 a lymph node measures 1.4 x 1.3 centimeter. Right level 1B centrally necrotic lymph nodes, the largest measuring 1.6 x 1.4 centimeter. Right level 3 centrally necrotic 1.3 centimeter rounded lymph node. Additional enhancing lymph nodes are present, smaller in size. Pronounced edema along the anterior tongue on the right, and soft tissues of the lips. Pronounced augie ma at throughout the supraglottic larynx, and the epiglottis. For however remain symmetric. Absent opacification of the left internal jugular vein, possibly due to mass effect or infiltration b y the dominant left level 3 lymph node. Evaluation of the osseous structures reveals osseous erosion along the left mandibular alveolar neel n with deepening of the dental sockets. The mandible is edentulous. Degenerative changes of the thora cic spine. Extensive dental/periodontal disease of the remaining maxillary dentition. Salivary glands are without suspicious masses. Thyroid gland is unremarkable. Lungs are separately evaluated on the dedicated CT of the chest. Included intracranial contents are u nremarkable. 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 Numerous necrotic metastatic deep cervical lymph nodes bilaterally. Largest lymph node is at level 3 on the left, appears to occlude the left internal jugular vein, and encircles approximately 90 degrees of the left common carotid artery circumference. Extensive at the along the anterior abdominal, lips, and supraglottic larynx, with edematous thickeni ng of the epiglottis. This could relate to venous congestion, given no history of radiation therapy y et. Upper airway is narrowed to 7 millimeter at the narrowest, at the level of the epiglottis. Lungs are evaluated separately and dedicated CT of the chest. The findings were communicated to Manuel Stanley on 04/04/2022 at 09:27 hours.
--- NOTE | 2022-04-04 09:54 | RAD REPORT ---
EXAM DESCRIPTION: CT - Thorax W/ Con - 04/04/2022 8:55 am CLINICAL HISTORY: Untreated pneumonia and cancer. Known mass COMPARISON: CT chest 03/11/2022. TECHNIQUE: Dynamically enhanced 5 mm thick images of the chest were obtained during administration o f 100 mL non-ionic IV contrast. Multiplanar reformats were generated and reviewed. All CT scans are performed using dose optimization technique as appropriate and may include automated exposure control or mA/KV adjustment according to patient size. FINDINGS: Innumerable nodules and ground-glass opacities throughout both lungs. A part solid peribro nchovascular left lower lobe nodule measuring 9 millimeter has increased in size from 7 millimeter o n the prior exam, axial image 41/63. Two other adjacent lower lobe nodules, on axial image 42, may be new or increased in size, the larges t measuring 7 millimeter. The largest opacities, in the right upper and lower lobes are stable. No ot her significant interval change. Enlarged bilateral hilar lymph nodes, largest measuring 2 x 19 millimeter on the right and 1 centimet er on the. The heart is normal in size. Ncqf-wc-iqinuktc atherosclerotic calcifications of the aorta. The pulmon ana luisa arteries are normal in caliber without gross evidence of filling defects. Necrotic lymph nodes in the left supraclavicular region, submandibular zones, and included aspects of the lower neck are separately evaluated on dedicated CT neck of the same day. No suspicious osseous lesions. Evaluation of the included upper abdominal structures reveals a 1.7 centimeter rounded hypoattenuatin g lesion, with thin marginal enhancement or pseudo capsule. This was not previously visualized on the noncontrast comparison CT of the chest. IMPRESSION: Innumerable nodules and ground-glass opacities throughout both lungs. Apart from a few n ew or progressively enlarged small nodules in the left lower lobe,, the abnormalities are stable in e xtent. Findings suggest metastatic disease to both lungs, although given the ground-glass appearance of some of the opacities, a superimposed or prominent pneumonia should be considered. Bilateral hilar adenopathy, could be reactive or metastatic. New left splenic 1.7 centimeter hypoattenuating rounded lesion, indeterminate.
--- NOTE | 2022-04-04 10:22 | ER ---
Nurse's Notes [facility] Name: Iveth Lara Age: 66 yrs Sex: Female : 1955 Arrival Date: 04/04/2022 Time: 07:04 Bed 20 Private MD: Diagnosis: Tongue cancer with swelling and edema;Adult failure to thrive;Dehydration;Malignant neoplasm of glottis;Malignant neoplasm of supraglottis Presentation: 04/04 07:17 Chief complaint: Spouse and/or significant other states: tongue is more swollen and was ko1 bleeding. Coronavirus screen: At this time, the client does not indicate any symptoms associated with coronavirus-19. Ebola Screen: No symptoms or risks identified at this time. Initial Sepsis Screen: Does the patient meet any 2 criteria? No. Patient's initial sepsis screen is negative. Does the patient have a suspected source of infection? No. Patient's initial sepsis screen is negative. Risk Assessment: Do you want to hurt yourself or someone else? Patient reports no desire to harm self or others. Onset of symptoms was April 04, 2022. 07:17 Method Of Arrival: Ambulatory ko1 07:17 Acuity: RIAN 3 ko1 Triage Assessment: 07:18 General: Appears distressed, uncomfortable, Behavior is calm, cooperative, appropriate ko1 for age. Pain: Complains of pain in tongue. Historical: - Allergies: 07:18 No Known Allergies; ko1 - PMHx: 07:18 Tongue Cancer; ko1 - Immunization history:: Adult Immunizations unknown. - Social history:: Smoking status: Patient/guardian denies using tobacco. - Family history:: not pertinent. - Hospitalizations: : No recent hospitalization is reported. Screenin:45 [facility] ED Fall Risk Assessment (Adult) History of falling in the last 3 months, ko1 including since admission No falls in past 3 months (0 pts) Confusion or Disorientation No (0 pts) Intoxicated or Sedated No (0 pts) Impaired Gait No (0 pts) Mobility Assist Device Used No (0 pt) Altered Elimination No (0 pt) Score/Fall Risk Level 0 - 2 = Low Risk Oriented to surroundings, Maintained a safe environment, Educated pt \T\ family on fall prevention, incl call for assistance when getting out of bed, Assessed \T\ reinforced patient's understanding of fall precautions, Provided non-skid footwear, Hourly rounding (assess needs \T\ fall precautionary measures) done, Used ambulatory aids as needed (educated on \T\ assisted with), Used gait belt as appropriate. Abuse screen: Denies threats or abuse. Denies injuries from another. Nutritional screening: Difficulty chewing/swallowing? Yes Had unintentional weight loss of 10 pounds or more. Tuberculosis screening: No symptoms or risk factors identified. Assessment: 08:03 Neuro: No deficits noted. Cardiovascular: No deficits noted. Respiratory: No deficits ko1 noted. GI: inability to eat due to tongue. : No deficits noted. EENT: Lesions noted. Derm: No deficits noted. Musculoskeletal: No deficits noted. Vital Signs: 07:17 BP 156 / 90; Pulse 99; Resp 18; Temp 98; Pulse Ox 99% ; ko1 08:05 BP 153 / 98; Pulse 88; Resp 18; Pulse Ox 99% on R/A; ko1 09:18 BP 169 / 75; Pulse 92; Resp 16; Pulse Ox 97% ; ko1 10:06 BP 158 / 73; Pulse 94; Resp 20; Pulse Ox 96% ; ko1 11:06 BP 129 / 72; Pulse 92; Resp 20; Pulse Ox 96% on R/A; ko1 ED Course: 07:04 Patient arrived in ED. rg4 07:05 Manuel Stanley MD is Attending Physician. rn 07:17 Lorelei Rose, GARETH is Primary Nurse. ko1 07:18 Triage completed. ko1 07:18 Arm band placed on right wrist. ko1 07:45 Inserted saline lock: 22 gauge in right antecubital area, using aseptic technique. ko1 Blood collected. 07:58 Protime (+inr) Sent. ko1 07:58 Ptt, Activated Sent. ko1 07:58 Basic Metabolic Panel Sent. ko1 07:58 CBC with Diff Sent. ko1 08:02 Patient has correct armband on for positive identification. Placed in gown. Bed in low ko1 position. Call light in reach. Side rails up X2. Pulse ox on. NIBP on. Warm blanket given. Diet: Patient is NPO. 08:05 XRAY Chest (1 view) In Process Unspecified. EDMS 08:29 Blood Culture Adult (2) Sent. ko1 08:29 CBC Smear Scan Sent. ko1 08:29 Protime (+inr) Sent. ko1 08:29 Ptt, Activated Sent. ko1 08:31 SARS RAPID Sent. ko1 08:[address] via stretcher. ko1 08:57 CT Soft Tissue Neck W/contr In Process Unspecified. EDMS 08:57 CT Chest W/ Con In Process Unspecified. EDMS 09:05 Patient moved back from CT. ko1 10:20 initiated a transfer with RADHA Hooker from the [facility]/. eb 10:31 connected the ENT data migration lead for [facility] with Dr. Stanley for patient transfer eb consultation. 10:36 connected the ED doctor data migration lead for [facility] with Dr. Stanley for patient transfer eb consultation. 10:38 administrative approval given by RADHA Hooker/ patient has been accepted to [facility] eb ED Dr. Aguilar Daily has accepted the patient in transfer/ report to be called to [phone]. 10:58 transfer transportation to receiving facility. ko1 10:58 Report given to GARETH [place]alloh [place] [facility] ko1 10:58 No provider procedures requiring assistance completed. ko1 11:06 Patient transferred, IV remains in place. ko1 Administered Medications: 08:34 Drug: NS 0.9% 1000 ml Route: IV; Rate: 1000 ml; Site: right antecubital; ko1 09:24 Follow up: Response: No adverse reaction ko1 08:42 Drug: Zofran (Ondansetron) 4 mg Route: IVP; Site: right antecubital; ko1 09:24 Follow up: Response: No adverse reaction ko1 08:44 Drug: morphine 4 mg Route: IVP; Infused Over: 4 mins; Site: right antecubital; ko1 09:24 Follow up: Response: No adverse reaction ko1 09:36 Drug: Decadron - Dexamethasone 10 mg Route: IVP; Site: right antecubital; ko1 10:25 Follow up: Response: No adverse reaction ko1 09:50 Drug: Zosyn (piperacillin-tazobactam) 3.375 grams Route: IVPB; Infused Over: 60 mins; ko1 Site: right antecubital; 11:27 Drug: morphine 2 mg Route: IVP; Infused Over: 4 mins; Site: right antecubital; ko1 11:33 Follow up: Response: No adverse reaction ko1 Medication: 11:06 VIS not applicable for this client. ko1 Outcome: 10:22 ER care complete, transfer ordered by . rn 11:34 Transferred by private ambulance [facility]. [place] [facility] Transfer form completed. X-rays sent w/ patient. 11:34 Condition: stable 11:34 Instructed on the need for transfer. 11:40 Patient left the ED. ko1 Signatures: Dispatcher [employer] EDMS Manuel Stanley MD MD rn Garcia, Rubi rg4 Laura Matt Kathy RN RN ko1
--- NOTE | 2022-04-04 10:23 | EDPHYS ---
Physician Documentation [facility] Name: Iveth Lara Age: 66 yrs Sex: Female : 1955 Arrival Date: 04/04/2022 Time: 07:04 Bed 20 Private MD: ED Physician Manuel Stanley HPI: 04/04 07:49 This 66 yrs old Female presents to ER via Ambulatory with complaints of Mouth Problem. rn 07:49 The patient presents with pain, swelling. The problem is located in the mouth. Onset: rn The symptoms/episode began/occurred at an unknown time. Duration: The symptoms are continuous. Modifying factors: The symptoms are alleviated by nothing, the symptoms are aggravated by nothing. Associated signs and symptoms: Pertinent positives: inability to eat, pain, swelling, Pertinent negatives: fever. Severity of symptoms: At their worst the symptoms were moderate, in the emergency department the symptoms are unchanged. The patient has experienced similar episodes in the past. The patient has been recently seen by a physician:. 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 Admitted here last week for PEG tube and further treatment. Pt eloped morning after admission and nothing was completed as planned. Pt had multifocal pneumonia at that time, known supraclavicular mass, and was supposed to get feeding tube and didn't. Has not been on abx. . Historical: - Allergies: 07:18 No Known Allergies; ko1 - PMHx: 07:18 Tongue Cancer; ko1 - Immunization history:: Adult Immunizations unknown. - Social history:: Smoking status: Patient/guardian denies using tobacco. - Family history:: not pertinent. - Hospitalizations: : No recent hospitalization is reported. 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 Exam: 07:49 Constitutional: Thin cachectic woman, no acute distress, foul smell from mouth, room rn smells strongly of cigarrettes and smoke Head/Face: Normocephalic, atraumatic. ENT: + tongue swelling with foul smell, no purulence, no stridor Neck: + bilateral cervical LAD, no crepitus Chest/axilla: Nontender with no deformity Cardiovascular: Regular rate and rhythm. No pulse deficits. Respiratory: Mild tachypnea, no retractions Abdomen/GI: Soft, non-tender Skin: Warm, dry MS/ Extremity: Pulses equal, no cyanosis. Neuro: Awake and alert, GCS 15 Vital Signs: 07:17 BP 156 / 90; Pulse 99; Resp 18; Temp 98; Pulse Ox 99% ; ko1 08:05 BP 153 / 98; Pulse 88; Resp 18; Pulse Ox 99% on R/A; ko1 09:18 BP 169 / 75; Pulse 92; Resp 16; Pulse Ox 97% ; ko1 10:06 BP 158 / 73; Pulse 94; Resp 20; Pulse Ox 96% ; ko1 11:06 BP 129 / 72; Pulse 92; Resp 20; Pulse Ox 96% on R/A; ko1 MDM: 07:05 Patient medically screened. rn 08:27 External Records Reviewed: Inpatient record: INpatient record from 11 days ago rn reviewed, including discharge summary and plan seemed to be PEG tube and abx. . 10:18 Differential diagnosis: head and neck cancer, edema, mass-effect, infection, rn malnourishment. Data reviewed: vital signs, nurses notes, lab test result(s), radiologic studies, CT scan, and as a result, I will admit patient. Consideration of Admission/Observation Patient was admitted/placed on observation. Escalation of care including admission/observation considered. Management of patient was discussed with the following: Rn Peritoneal Dialysis: Management of case discussed with Dr. Bella, recommends transfer to tertiary care center for comprehensive care, as patient wants treatment, understands that may need awake tracheostomy as well as PEG tube. . Independent interpretation of the following test(s) in the Emergency Department CT Scan: My interpretation is CT neck images interpreted by me show large mass around tongue/base of tongue with mass-effect, small airway. Discussion of test interpretation with radiology: I had a discussion with radiology regarding a test interpretation. Discussed images with radiologist. Historians other than the Patient: Spouse/Significant Other: Most of story from spouse as patient difficulty speaking. Counseling: I had a detailed discussion with the patient and/or guardian regarding: the historical points, exam findings, and any diagnostic results supporting the discharge/admit diagnosis, lab results, radiology results, the need to transfer to another facility, for higher level of care. Response to treatment: There is no appreciated change of the patient's symptoms at this time, and as a result, I will admit patient. 10:44 ED course: Pt accepted for transfer to [facility], will likely need tracheostomy. 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 . 04/04 07:35 Order name: CBC with Diff; Complete Time: 09:06 04/04 07:35 Order name: Basic Metabolic Panel; Complete Time: 08:23 04/04 07:35 Order name: Protime (+inr); Complete Time: 08:47 04/04 07:35 Order name: Ptt, Activated; Complete Time: 08:47 04/04 07:35 Order name: Blood Culture Adult (2) rn 04/04 08:23 Order name: CBC Smear Scan; Complete Time: 09:06 EDKS 04/04 07:35 Order name: CT Soft Tissue Neck W/contr; Complete Time: 09:44 rn 04/04 07:35 Order name: CT Chest W/ Con; Complete Time: 09:54 04/04 07:35 Order name: XRAY Chest (1 view); Complete Time: 08:22 rn 04/04 08:23 Order name: SARS RAPID; Complete Time: 09:06 rn 04/04 09:34 Order name: Lactate w/ 2H reflex if indic.; Complete Time: 10:31 rn 04/04 07:35 Order name: IV Start; Complete Time: 07:58 rn 04/04 08:11 Order name: Labs - recollect needed: Blue top. Make sure to fill up to fill line. ; aa5 Complete Time: 08:29 Administered Medications: 08:34 Drug: NS 0.9% 1000 ml Route: IV; Rate: 1000 ml; Site: right antecubital; ko1 09:24 Follow up: Response: No adverse reaction ko1 08:42 Drug: Zofran (Ondansetron) 4 mg Route: IVP; Site: right antecubital; ko1 09:24 Follow up: Response: No adverse reaction ko1 08:44 Drug: morphine 4 mg Route: IVP; Infused Over: 4 mins; Site: right antecubital; ko1 09:24 Follow up: Response: No adverse reaction ko1 09:36 Drug: Decadron - Dexamethasone 10 mg Route: IVP; Site: right antecubital; ko1 10:25 Follow up: Response: No adverse reaction ko1 09:50 Drug: Zosyn (piperacillin-tazobactam) 3.375 grams Route: IVPB; Infused Over: 60 mins; ko1 Site: right antecubital; 11:27 Drug: morphine 2 mg Route: IVP; Infused Over: 4 mins; Site: right antecubital; ko1 11:33 Follow up: Response: No adverse reaction ko1 Disposition Summary: 04/04/22 10:22 Transfer Ordered Transfer Location: [facility] [place] rn Reason: Higher level of care rn Condition: Stable rn Problem: an ongoing problem rn Symptoms: have worsened rn Accepting Physician: (04/04/22 11:40) [email or web address] Diagnosis - Tongue cancer with swelling and edema rn - Adult failure to thrive rn - Dehydration rn - 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 Total time: 45 rn minutes Signatures: Dispatcher [employer] Manuel Reese MD MD rn Calderon, Audri RN RN aa5 Lorelei Rose RN RN ko1 Corrections: (The following items were deleted from the chart) 11:40 10:22 rn ko1
[2022-04-04] MEDS ORDERED: MORPHINE 2 MG/ML SYR ONE (11:30)
[2022-04-04 11:46] VITALS: TEMP 98
[2022-04-04 11:50] VITALS: O2SAT 96
[2022-04-04 11:51] VITALS: BP 129/72
== END 2022-04-04 11:40 | disposition short-term general hospital (02) ==
LOC: ER 07:02
DX: C02.9 Malignant neoplasm of tongue, unspecified (principal); R62.7 Adult failure to thrive; E86.0 Dehydration; C32.0 Malignant neoplasm of glottis; C32.1 Malignant neoplasm of supraglottis; Z20.822 Contact with and (suspected) exposure to COVID-19
CPT/HCPCS: 87040 ×2; 85025; 80048; 36415; 85610; 83605; 85730; 71260; 70491; 71045; 96375; 96374; 99285; 87811; Q9967; J2543; J1100; J2270; J7030; J2405